=== PATIENT | female | born 1965 | race Caucasian/White ===

== ENCOUNTER 2018-03-26 20:22 | Emergency (ER) | payer OTHER ==
[2018-03-26 20:35] VITALS: BP 125/85; PULSE 76; TEMP 98.8; BMI 28.3
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
[2018-03-26] MEDS ORDERED: SODIUM CHLORIDE 1,000 ML IV STA (21:15)
[2018-03-26 21:42] LABS: BASO % 0.7 % (0-2.0); EOS % 2.5 % (0-4.5); HEMATOCRIT 37.3 % (32.4-45.2); HEMOGLOBIN 13.2 GM/dl (10.7-15.3); LYMPH % 38.6 % (8-40); MCH 32.7 pg (25.7-33.7); MCHC 35.4 g/dl (32.0-36.0); MEAN CELL VOLUME 92.3 fl (80-96); MEAN PLT VOLUME 8.7 fl (7.5-11.1); MONO % 9.4 % (3.8-10.2); NEUT % 48.8 % (42.8-82.8); PLATELET COUNT 278 K/MM3 (134-434); RBC 4.03 M/mm3 (3.60-5.2); RDW 13.3 % (11.6-15.6); WHITE BLOOD COUNT 5.5 K/mm3 (4.0-10.8)
[2018-03-26 21:50] LABS: ALBUMIN 4.1 g/dl (3.5-5.0); ALK PHOS 52 U/L (32-92); ANION GAP 7 (8-16); BLOOD UREA NITROGEN 10 mg/dl (7-18); CALCIUM 8.8 mg/dl (8.4-10.2); CHLORIDE 106 mmol/L (98-107); CO2 24 mmol/L (22-28); GLUCOSE,RANDOM 89 mg/dl (74-106); POTASSIUM 3.6 mmol/L (3.5-5.1); SGOT/AST 19 U/L (10-42); SGPT/ALT 22 U/L (10-40); SODIUM 137 mmol/L (136-145); TOT PROT 6.8 g/dl (6.4-8.3)
[2018-03-26 21:57] LABS: CREATININE 0.8 mg/dl (0.6-1.3)
[2018-03-26 22:03] LABS: BILIRUBIN,TOTAL < 0.5 mg/dl (0.2-1.0)
[2018-03-26] MEDS ORDERED: MECLIZINE HCL 12.5 MG TABLET ONE (22:16)
--- NOTE | 2018-03-27 09:46 | EKG ---
Test Reason : Blood Pressure : / mmHG Vent. Rate : 056 BPM Atrial Rate : 056 BPM P-R Int : 162 ms QRS Dur : 076 ms QT Int : 436 ms P-R-T Axes : 041 -01 000 degrees QTc Int : 420 ms SINUS BRADYCARDIA OTHERWISE NORMAL ECG NO PREVIOUS ECGS AVAILABLE Confirmed by YANDY PRAKASH MD ([id number]) on 03/27/2018 9:46:21 AM Referred By: DAVE BULL Confirmed By:YANDY PRAKASH MD
== END 2018-03-26 22:27 | disposition home or self-care (01) ==
LOC: FER 20:22
PROC: 3E0337Z Introduction of Electrolytic and Water Balance Substance into Peripheral Vein, Percutaneous Approach (ICD-10-PCS; principal; 2018-03-26)
DX: H81.20 Vestibular neuronitis, unspecified ear (principal); Z88.2 Allergy status to sulfonamides
CPT/HCPCS: 36415; 80053; 85025; 93005; 99282-25; J7030

== ENCOUNTER 2018-05-21 23:50 | Observation (INO) | payer OTHER ==
[2018-05-22] VITALS: BMI 28.3
--- NOTE | 2018-05-22 00:16 | PDOC ---
History of Present Illness - General Chief Complaint: Pain, Acute Stated Complaint: ABDOMINAL PAIN Time Seen by Provider: 05/22/18 00:09 History Source: Patient Exam Limitations: No Limitations - History of Present Illness Initial Comments: 05/22/18 00:18 This is a 52-year-old female who comes in complaining of abdominal pain 2 days. Patient said pain began last night and was associated with some chills. Patient did not take her temperature. Patient said she has had nausea but no vomiting. Patient denies any diarrhea. Patient said today she has had pain throughout the day with some anorexia and nausea. Patient denies history of similar pain in the past. PAST MEDICAL HISTORY: no significant history PAST SURGICAL HISTORY: no significant history FAMILY HISTORY: no pertinant history SOCIAL HISTORY: Pt lives with family and is employed. MEDICATIONS: reviewed ALLERGIES: As per nursing notes Review of Systems General: No fevers or chills, no weakness, no weight loss HEENT: No change in vision. No sore throat,. No ear pain CardioVascular: No chest pain or shortness of breath Respiratory:No cough, or wheezing. Gastrointestinal: + nausea, vomitting, diarrhea or constipation, No rectal bleeding, + abdominal pain Genitourinary: No dysuria, hematuria, or frequency Musculoskeletal: No joint or muscle pain or swelling Neurologic: No headache, vertigo, dizziness or loss of consciousness Psychiatric: nor depression Skin: No rashes or easy bruising Endocrine: no increased thirst or abnormal weight change Allergic: no skin or latex allergy All other systems reviewed and normal Exam: General: Well-nourished well-developed individual, no acute distress HEENT: Throat: Normal, tonsils normal, no erythema or exudate Neck: Supple, no meningeal signs, no lymphadenopathy Eyes::Pupils equal reactive and round, extraocular motion intact Chest: Nontender to palpation Cardiac: S1-S2 normal, regular rate and rhythm, no murmurs rubs or gallops Respiratory: Lungs clear to auscultation bilateral Abdomen: Soft, nondistended, normal bowel sounds, tender to palpation to the right of the umbilicus. There is no guarding or rebound. Extremities: Warm, dry, no cyanosis, clubbing, or edema Skin: No rashes Neuro: Alert and oriented x3, CN II - XII intact, nonfocal exam with normal strength, normal sensation, normal reflexes, normal gait, Psych: Normal mood and affect Medical decision making: This is a 52-year-old female who comes in complaining of 2 days now of some anorexia nausea and abdominal pain with probable fever. Patient was tender on palpation of the area adjacent to the umbilicus. It is uncertain as to whether or not this is gallbladder etiology or appendicitis. Will of obtain a workup of CBC, comp, lipase, UA, Scan abdomen and pelvis CT scan abdomen shows acute appendicitis. 05/22/18 03:30 Assessment and plan: This is a 52-year-old female who comes in complaining of abdominal pain. Patient had a workup which included a CT scan of the abdomen which revealed patient has an acute appendicitis. Patient will be admitted, transferred to [facility] and will go to the OR later today. Patient given Zosyn. Past History - Past Medical History Allergies/Adverse Reactions: Allergies Allergy/AdvReac Type Severity Reaction Status Date / Time Sulfa (Sulfonamide Allergy Verified 03/26/18 20:23 Antibiotics) Home Medications: Ambulatory Orders Lorazepam [Ativan] 0.5 mg PO PRN PRN 03/26/18 Meclizine HCl [Antivert -] 12.5 mg PO TID PRN #12 tablet 03/26/18 COPD: No - Suicide/Smoking/Psychosocial Hx Smoking History: Never smoked *Physical Exam - Vital Signs Last Vital Signs Temp Pulse Resp BP Pulse Ox 99.1 F 87 16 110/70 100 05/21/18 23:51 05/21/18 23:51 05/21/18 23:51 05/21/18 23:51 05/21/18 23:51 ED Treatment Course - LABORATORY CBC & Chemistry Diagram: 05/22/18 00:35 05/22/18 00:35 *DC/Admit/Observation/Transfer Diagnosis at time of Disposition: Acute appendicitis Qualifiers: Acute appendicitis type: unspecified acute appendicitis type Qualified Code(s) : K35.80 - Unspecified acute appendicitis - Discharge Dispostion Condition at time of disposition: Stable Decision to Admit order: Yes - Referrals Referrals: Jt Obando [Primary Care Provider] - - Patient Instructions - Post Discharge Activity
[2018-05-22] MEDS ORDERED: SODIUM CHLORIDE 1,000 ML IV SCH (00:30)
[2018-05-22 01:26] LABS: BASO % 0.2 % (0-2.0); EOS % 2.7 % (0-4.5); HEMATOCRIT 36.3 % (32.4-45.2); HEMOGLOBIN 12.3 GM/dL (10.7-15.3); LYMPH % 33.8 % (8-40); MCH 31.9 pg (25.7-33.7); MCHC 33.9 g/dl (32.0-36.0); MEAN PLT VOLUME 9.4 fl (7.5-11.1); MONO % 12.8 % (3.8-10.2); NEUT % 50.5 % (42.8-82.8); PLATELET COUNT 236 K/MM3 (134-434); RBC 3.86 M/mm3 (3.60-5.2); RDW 13.7 % (11.6-15.6); WHITE BLOOD COUNT 4.5 K/mm3 (4.0-10.0)
[2018-05-22 02:00] LABS: ALBUMIN 3.5 g/dl (3.4-5.0); ANION GAP 8 (8-16); BILIRUBIN,TOTAL 0.3 mg/dL (0.2-1.0); BLOOD UREA NITROGEN 11 mg/dL (7-18); CALCIUM 8.5 mg/dL (8.5-10.1); CHLORIDE 108 mmol/L (98-107); CO2 27 mmol/L (21-32); CREATININE 0.8 mg/dL (0.55-1.02); GLUCOSE,RANDOM 105 mg/dL (74-106); LIPASE 152 U/L (73-393); POTASSIUM 3.7 mmol/L (3.5-5.1); SGOT/AST 19 U/L (15-37); SGPT/ALT 31 U/L (12-78); SODIUM 143 mmol/L (136-145); TOT PROT 6.8 g/dl (6.4-8.2)
[2018-05-22 02:01] LABS: ALK PHOS 58 U/L (45-117)
[2018-05-22 02:04] LABS: URINE APPEARANCE SLCLOUDY; URINE BILIRUBIN NEGATIVE (<2.0 mg/dL); URINE COLOR YELLOW; URINE GLUCOSE (UA) NEGATIVE (NEGATIVE); URINE KETONE NEGATIVE (NEGATIVE); URINE NITRITE NEGATIVE (NEGATIVE); URINE PROTEIN NEGATIVE (NEGATIVE); URINE UROBILINOGEN NEGATIVE mg/dL (0.2-1.0)
[2018-05-22 02:06] LABS: URINE LEUK ESTERASE 1+ (NEGATIVE)
[2018-05-22 02:07] LABS: CALCIUM OXALATE CRYSTALS MODERATE /hpf (NONE SEEN); EPI CELLS RARE /HPF (FEW); GRANULAR CASTS 3 /lpf; URINE BACTERIA RARE /hpf (NONE SEEN); URINE MUCUS FEW
[2018-05-22] MEDS ORDERED: PIPERACILLIN/TAZOB 4.5 GM 4.5 GM in DEXTROSE 5%-WATER 100 ML IVPB ONE (03:32)
[2018-05-22] MEDS ORDERED: PIPERACILLIN/TAZOBACTAM 4.5 GM VIAL IVPB ONE (03:33)
[2018-05-22] MEDS ORDERED: MECLIZINE HCL 12.5 MG TABLET PO PRN (04:08)
--- NOTE | 2018-05-22 08:21 | HP ---
CHIEF COMPLAINT: abdominal pain PCP: none has not been evaluated by a PCP since she moved from [facility] 2 years ago HISTORY OF PRESENT ILLNESS: Patient is a 52 y/o male with a past medical history of anxiety, pericarditis and undifferentiated autoimmune disease. Patient reports generalized abdominal pain since 05/20/18, She reports the pain became more localized to the right lower quadrant of the abdomen with chills and nausea within the past 24 hours. As a result, she sought evaluation in the emergency department. ER course was notable for: (1)ct of abd/pelvis: finding suspicious of early appendicitis (2)wbc 4.5 (3) chest xray no infiltrate no effusion noted Recent Travel: none PAST MEDICAL HISTORY: see hpi PAST SURGICAL HISTORY: x 1, left orbital floor fracture repair Social History: resides at home with and son Smoking:none Alcohol:social Drugs: none Family History: mom- lung/breast ca father-ME alive and well Allergies Sulfa (Sulfonamide Antibiotics) Allergy (Verified 03/26/18 20:23) HOME MEDICATIONS: Home Medications Medication Instructions Recorded Lorazepam [Ativan] 0.5 mg PO PRN PRN 03/26/18 Meclizine HCl [Antivert -] 12.5 mg PO TID PRN #12 tablet 03/26/18 REVIEW OF SYSTEMS CONSTITUTIONAL: Absent: fever, chills, diaphoresis, generalized weakness, malaise, loss of appetite, weight change HEENT: Absent: rhinorrhea, nasal congestion, throat pain, throat swelling, difficulty swallowing, mouth swelling, ear pain, eye pain, visual changes CARDIOVASCULAR: Absent: chest pain, syncope, palpitations, irregular heart rate, lightheadedness , peripheral edema RESPIRATORY: Absent: cough, shortness of breath, dyspnea with exertion, orthopnea, wheezing, stridor, hemoptysis GASTROINTESTINAL: present: abdominal pain, nausea Absent: abdominal distension, vomiting, diarrhea, constipation, melena, hematochezia GENITOURINARY: Absent: dysuria, frequency, urgency, hesitancy, hematuria, flank pain, genital pain MUSCULOSKELETAL: Absent: myalgia, arthralgia, joint swelling, back pain, neck pain SKIN: Absent: rash, itching, pallor HEMATOLOGIC/IMMUNOLOGIC: Absent: easy bleeding, easy bruising, lymphadenopathy, frequent infections ENDOCRINE: Absent: unexplained weight gain, unexplained weight loss, heat intolerance, cold intolerance NEUROLOGIC: Absent: headache, focal weakness or paresthesias, dizziness, unsteady gait, seizure, mental status changes, bladder or bowel incontinence PSYCHIATRIC: Absent: anxiety, depression, suicidal or homicidal ideation, hallucinations. PHYSICAL EXAMINATION Vital Signs - 24 hr 05/21/18 05/22/18 05/22/18 23:51 02:30 03:54 Temperature 99.1 F 98.4 F 98.4 F Pulse Rate 87 Respiratory 16 16 Rate Blood Pressure 110/70 O2 Sat by Pulse 100 100 Oximetry (%) 05/22/18 06:21 Temperature 98.6 F Pulse Rate 55 L Respiratory 18 Rate Blood Pressure 100/62 O2 Sat by Pulse 94 L Oximetry (%) GENERAL: Awake, alert, and fully oriented, in no acute distress. HEAD: Normal with no signs of trauma. EYES: Pupils equal, round and reactive to light, extraocular movements intact, sclera anicteric, conjunctiva clear. No lid lag. EARS, NOSE, THROAT: Ears normal, nares patent, oropharynx clear without exudates. Moist mucous membranes. NECK: Normal range of motion, supple without lymphadenopathy, JVD, or masses. LUNGS: Breath sounds equal, clear to auscultation bilaterally. No wheezes, and no crackles. No accessory muscle use. HEART: Regular rate and rhythm, normal S1 and S2 without murmur, rub or gallop. ABDOMEN: Soft, echymosis (patient underwent accupunture 05/21/18), + mcburney's point tenderness, not distended, normoactive bowel sounds, no guarding, no masses. No hepatomegaly or splenomegaly. MUSCULOSKELETAL: Normal range of motion at all joints. No bony deformities or tenderness. No CVA tenderness. UPPER EXTREMITIES: 2+ pulses, warm, well-perfused. No cyanosis. No clubbing. No peripheral edema. LOWER EXTREMITIES: 2+ pulses, warm, well-perfused. No calf tenderness. No peripheral edema. NEUROLOGICAL: Cranial nerves II-XII intact. Normal speech. Normal gait. PSYCHIATRIC: Cooperative. Good eye contact. Appropriate mood and affect. SKIN: Warm, dry, normal turgor, no rashes or lesions noted, normal capillary refill. Laboratory Results - last 24 hr 05/22/18 05/22/18 05/22/18 00:35 00:35 00:35 WBC 4.5 RBC 3.86 Hgb 12.3 Hct 36.3 MCV 94.0 MCH 31.9 MCHC 33.9 RDW 13.7 Plt Count 236 MPV 9.4 Absolute Neuts (auto) 2.3 Neutrophils % 50.5 Lymphocytes % 33.8 Monocytes % 12.8 H Eosinophils % 2.7 Basophils % 0.2 Nucleated RBC % 0 Sodium 143 Potassium 3.7 Chloride 108 H Carbon Dioxide 27 Anion Gap 8 BUN 11 Creatinine 0.8 Creat Clearance w eGFR > 60 Random Glucose 105 Calcium 8.5 Total Bilirubin 0.3 AST 19 ALT 31 Alkaline Phosphatase 58 Total Protein 6.8 Albumin 3.5 Lipase 152 Urine Color Yellow Urine Appearance Slcloudy Urine pH 5.0 Ur Specific [place] 1.026 Urine Protein Negative Urine Glucose (UA) Negative Urine Ketones Negative Urine Blood Negative Urine Nitrite Negative Urine Bilirubin Negative Urine Urobilinogen Negative Ur Leukocyte Esterase 1+ H Urine WBC (Auto) 22 Urine RBC (Auto) 7 Ur Epithelial Cells Rare Calcium Oxalate Crystal Moderate Urine Bacteria Rare Granular Casts 3 Urine Mucus Few ASSESSMENT/PLAN: 1) acute appendicitis - ct scan of abd reviewed, continue NPO-->ivf, discussed with surgeon, Dr Salazar will evaluate patient today - continue zosyn, second dose at 10am, appreciate ID input for abx approval - no leukocytosis, patient is afebrile, pending AM LABS trend cbc and fever curve - stat type and screen and INR 2) psych anxiety - continue home dose ativan 0.5mg TID prn, medication verifed with [place] [facility] Reference #: [id number] f/e/n - npo-->IVF - replete electrolyted prn ppx - scd/simón - pepcid dispo: pt requires obsv admission Visit type - Emergency Visit Emergency Visit: Yes ED Registration Date: 05/22/18 Care time: The patient presented to the Emergency Department on the above date and was hospitalized for further evaluation of their emergent condition. - New Patient This patient is new to me today: Yes Date on this admission: 05/22/18 - Critical Care Critical Care patient: No Hospitalist Screening - Colonoscopy Questionnaire Colonoscopy Questionnaire: Colonoscopy Questionnaire - Patient: 50 - 75 years old and never had a screening colonoscopy: Yes History of colon or rectal polyps, or CA: No History of IBD, Crohn's disease or UC: No History of abdominal radiation therapy as a child: No - Relative: 1 with colon or rectal CA, or polyps at age 60 or younger: No Colon or rectal CA diagnosed at age 45 or younger: No Multiple relatives with colon or rectal CA: No - Outcome: Screening Result: Positive Screen
[2018-05-22] MEDS ORDERED: SODIUM CHLORIDE 0.9%/KCL 20 MEQ/1,000 ML INFUS.BAG IV SCH (09:15)
--- NOTE | 2018-05-22 09:28 | EKG ---
Test Reason : Blood Pressure : / mmHG Vent. Rate : 052 BPM Atrial Rate : 052 BPM P-R Int : 160 ms QRS Dur : 064 ms QT Int : 448 ms P-R-T Axes : 018 -05 -06 degrees QTc Int : 416 ms SINUS BRADYCARDIA POOR R WAVE PROGRESSION ABNORMAL ECG WHEN COMPARED WITH ECG OF 26-MAR-2018 21:21, NO SIGNIFICANT CHANGE WAS FOUND Confirmed by YANDY PRAKASH MD ([id number]) on 05/22/2018 9:28:05 AM Referred By: DR MCNAMARA Confirmed By:YANDY PRAKASH MD
[2018-05-22] MEDS ORDERED: LORazepam 0.5 MG TABLET PO PRN ×2 (09:30→10:08)
[2018-05-22] MEDS: FAMOTIDINE 20 MG/50 ML IVPB 20 MG/50 ML MG IVPB SCH ×2 (09:47→21:24)
[2018-05-22] MEDS ORDERED: PIPERACILLIN/TAZOB 3.375 GM 3.375 GM/50 ML BAG IVPB ONE (10:00)
[2018-05-22] MEDS ORDERED: LIDOCAINE HCL 1%, 10 MG/ML (20ML VIAL) ONE (10:16)
[2018-05-22] MEDS ORDERED: BUPIVACAINE HCL/PF 0.5% (5MG/ML) 10 ML VIAL ONE (10:16)
--- NOTE | 2018-05-22 11:14 | CONSULT ---
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 She had decreased appetite Fri and , felt very uncomfortable, never vomited, but did have chills yesterday. In ER, she has normal wbc, CT showed acute appendicitis, and u/a is consistent with translocation of bacteria. Her pain is much better since medication, IVF and antibiotics were started. Currently, still with some discomfort in RLQ. [place] constipated Wed morning, took shake with flax and spirulina and had a BM, then also took magnesium and had some more , but not as much as expected. Last po was yesterday. She also took 2 Excedrin yesterday for the pain. - History Source History Provided By: Patient Limitations to Obtaining History: No Limitations - Past Medical History Gastrointestinal: Yes: GERD ...: No Psych: No: Anxiety (pt denies - uses ativan for sleep), Depression Rheumatology: Yes: Other (undifferentiated autoimmune disease) - Past Surgical History Past Surgical History: Yes: Additional Surgical History: L orbital fx repair and sinus surgery after an accident - Alcohol/Substance Use Hx Alcohol Use: Yes (social ) History of Substance Use: reports: None - Smoking History Smoking history: Former smoker Have you smoked in the past 12 months: No If you are a former smoker, when did you quit?: 4 pk-yr hx in teens - Social History Usual Living Arrangement: With Spouse ADL: Independent Home Medications - Allergies Allergies/Adverse Reactions: Allergies Allergy/AdvReac Type Severity Reaction Status Date / Time Sulfa (Sulfonamide Allergy Verified 03/26/18 20:23 Antibiotics) - Home Medications Home Medications: Ambulatory Orders Lorazepam [Ativan] 0.5 mg PO PRN PRN 03/26/18 Home Medications (free text): pt uses 1-2 nightly prn for sleep Family Disease History - Family Disease History Family History: Unremarkable (noncontributory) Review of Systems - Review of Systems Constitutional: reports: Chills, Loss of Appetite. denies: Fever Eyes: reports: Other (wears glasses). denies: Recent Change in Vision HENT: denies: Difficult Swallowing, Nasal Congestion, Throat Pain Neck: denies: Swollen Glands, Tenderness Cardiovascular: reports: Chest Pain (more acid and gas-like with hpi). denies: Palpitations Respiratory: reports: SOB on Exertion (with exercise). denies: Cough, SOB Gastrointestinal: reports: Abdominal Pain (with hpi), Constipation (last couple days), Nausea. denies: Diarrhea, Vomiting Genitourinary: denies: Burning, Dysuria Musculoskeletal: denies: Back Pain, Joint Pain, Muscle Pain Integumentary: denies: Change in Color, Rash Neurological: reports: Headache (last couple days). denies: Dizziness Psychiatric: denies: Anxiety, Depression Physical Exam Vital Signs: Vital Signs Temperature 97.8 F 05/22/18 10:09 Pulse Rate 18 L 05/22/18 10:09 Respiratory Rate 18 05/22/18 10:09 Blood Pressure 105/66 05/22/18 10:09 O2 Sat by Pulse Oximetry (%) 97 05/22/18 10:09 Constitutional: Yes: No Distress, Calm, Obese Eyes: Yes: Conjunctiva Clear, EOM Intact HENT: Yes: Atraumatic, Normocephalic Neck: Yes: Supple, Trachea Midline Cardiovascular: Yes: Regular Rate and Rhythm Respiratory: Yes: Regular, CTA Bilaterally Gastrointestinal: Yes: Normal Bowel Sounds, Soft, Abdomen, Obese, Tenderness ( RLQ focally, no guarding or rebound), Other (healed Pfannenstiel scar). No: Distention ...Rectal Exam: Yes: Deferred Renal/: No: CVA Tenderness - Left, CVA Tenderness - Right Musculoskeletal: No: Joint Stiffness, Joint Swelling Extremities: No: Cool, Cyanosis Edema: No Peripheral Pulses WNL: Yes Integumentary: No: Jaundice, Rash Neurological: Yes: Alert, Oriented Psychiatric: Yes: Alert, Oriented Labs: CBC, BMP 05/22/18 00:35 05/22/18 00:35 CMP Sodium 143 mmol/L (136-145) 05/22/18 00:35 Potassium 3.7 mmol/L (3.5-5.1) 05/22/18 00:35 Chloride 108 mmol/L (98-107) H 05/22/18 00:35 Carbon Dioxide 27 mmol/L (21-32) 05/22/18 00:35 Anion Gap 8 (8-16) 05/22/18 00:35 BUN 11 mg/dL (7-18) 05/22/18 00:35 Creatinine 0.8 mg/dL (0.55-1.02) 05/22/18 00:35 Creat Clearance w eGFR > 60 (>60) 05/22/18 00:35 Random Glucose 105 mg/dL (74-106) 05/22/18 00:35 Calcium 8.5 mg/dL (8.5-10.1) 05/22/18 00:35 Total Bilirubin 0.3 mg/dL (0.2-1.0) 05/22/18 00:35 AST 19 U/L (15-37) 05/22/18 00:35 ALT 31 U/L (12-78) 05/22/18 00:35 Alkaline Phosphatase 58 U/L (45-117) 05/22/18 00:35 Total Protein 6.8 g/dl (6.4-8.2) 05/22/18 00:35 Albumin 3.5 g/dl (3.4-5.0) 05/22/18 00:35 Lipase 152 U/L (73-393) 05/22/18 00:35 Urine Test Results Urine Color Yellow 05/22/18 00:35 Urine Appearance Slcloudy 05/22/18 00:35 Urine pH 5.0 (5.0-8.0) 05/22/18 00:35 Ur Specific [place] 1.026 (1.001-1.035) 05/22/18 00:35 Urine Protein Negative (NEGATIVE) 05/22/18 00:35 Urine Glucose (UA) Negative (NEGATIVE) 05/22/18 00:35 Urine Ketones Negative (NEGATIVE) 05/22/18 00:35 Urine Blood Negative (NEGATIVE) 05/22/18 00:35 Urine Nitrite Negative (NEGATIVE) 05/22/18 00:35 Urine Bilirubin Negative (<2.0 mg/dL) 05/22/18 00:35 Ur Leukocyte Esterase 1+ (NEGATIVE) H 05/22/18 00:35 Ur Epithelial Cells Rare /HPF (FEW) 07/06/18 00:35 Urine Bacteria Rare /hpf (NONE SEEN) 05/22/18 00:35 Urine Mucus Few 05/22/18 00:35 PT pending Imaging - Results Cat Scan: Report Reviewed, Image Reviewed (images personally reviewed - enlarged appendix with mild periappendiceal inflammation, acute appendicitis, no abscess or perforation) Problem List - Problems (1) Appendicitis Assessment/Plan: admitted to medicine NPO/IVF antibiotics pain meds prn Discussed with patient risks, benefits and alternatives of laparoscopic possible open appendectomy, including but not limited to bleeding, infection, injury to adjacent structures, intestinal leak or injury, intraabdominal abscess , need for further procedures; alternatives include antibiotics, delayed or no surgery - risks of this include failure of nonoperative therapy, perforation, sepsis, recurrence. Patient desires to proceed with operation - will take to OR for above. Informed consent signed for same. anticipate resumption of po postop GI/DVT prophylaxis will use nonnarcotics first line postop will be able to d/c when ambulating, voiding, tolerating some po, pain controlled with oral meds discussed with Talita Sherwood Code(s): K37 - UNSPECIFIED APPENDICITIS Qualifiers: Appendicitis type: acute appendicitis Acute appendicitis type: unspecified acute appendicitis type Qualified Code(s): K35.80 - Unspecified acute appendicitis (2) Nausea alone Code(s): R11.0 - NAUSEA (3) RLQ abdominal pain Code(s): R10.31 - RIGHT LOWER QUADRANT PAIN
[2018-05-22 11:22] LABS: INR 0.98 (0.82-1.09)
[2018-05-22] MEDS ORDERED: ROCURONIUM BROMIDE 50 MG/5 ML VIAL ONE (11:36)
[2018-05-22] MEDS ORDERED: MIDAZOLAM HCL 2 MG/2 ML SINGLE DOSE VIAL ONE (11:36)
[2018-05-22] MEDS ORDERED: PROPOFOL 20 ML ONE ×2 (11:36)
[2018-05-22] MEDS ORDERED: fentaNYL CITRATE 250 MCG/5 ML VIAL ONE (11:36)
[2018-05-22] MEDS ORDERED: ONDANSETRON 4 MG/2 ML VIAL ONE (12:01)
[2018-05-22] MEDS ORDERED: DEXAMETHASONE SOD PHOSPHATE 4 MG/1 ML VIAL ONE (12:01)
[2018-05-22] MEDS ORDERED: KETOROLAC TROMETHAMINE 30 MG/1 ML VIAL ONE (12:01)
[2018-05-22] MEDS ORDERED: LIDOCAINE HCL 2% JELLY (5 ML/TUBE) ONE (12:01)
[2018-05-22] MEDS ORDERED: ePHEDrine SULFATE 50 MG/1 ML AMPULE ONE (12:05)
[2018-05-22] MEDS ORDERED: BUPIVACAINE HCL 0.25% 125 MG/50 ML VIAL INF ONE (12:42)
[2018-05-22] MEDS ORDERED: NEOSTIGMINE METHYLSULFATE 0.5 MG/ML - 10 ML MDV ONE (12:54)
[2018-05-22] MEDS ORDERED: GLYCOPYRROLATE 0.2 MG/1 ML VIAL ONE (12:58)
[2018-05-22] MEDS ORDERED: PROMETHAZINE HCL 25 MG/1 ML VIAL IVPUSH PRN (13:16)
[2018-05-22] MEDS ORDERED: oxyCODONE HCL 5 MG TABLET PO PRN ×2 (13:16)
--- NOTE | 2018-05-22 13:16 | OP ---
Operative Note - Note: Operative Date: 05/22/18 Pre-Operative Diagnosis: acute appendicitis Operation: laparoscopic appendectomy Findings: inflamed appendix Post-Operative Diagnosis: Same as Pre-op Surgeon: John Salazar Anesthesiologist/COCOA ROASTER: Andres Friedman Anesthesia: General, Local (10ml .25% marcaine) Specimens Removed: appendix to pathology Estimated Blood Loss (mls): 5 Drains & Tubes with Location: Olivares removed at end of case Drains, Volume Out (mls): 75 (UOP) Fluid Volume Replaced (mls): 650 (crystalloid) Operative Report Dictated: Yes
--- NOTE | 2018-05-22 13:29 | CON.ID ---
Consult Consult Specialty:: infectious diseases Reason for Consultation:: Appendicitis,abd pain - History of Present Illness Chief Complaint: abd pain History of Present Illness: 52yo F with autoimmune disorder admitted to the hospital because of abd pain and discomfort which was associated with nausea initially the pain was diffuse then it got localized to the rlq patient was worked up and found to have acute appendicitis on imaging studies and patient was taken to the operating room and was operated currently post op and stable case d/w the surgical team - History Source History Provided By: Patient, Medical Record Limitations to Obtaining History: Clinical Condition - Past Medical History Gastrointestinal: Yes: GERD ...: No Psych: No: Anxiety (pt denies - uses ativan for sleep), Depression Rheumatology: Yes: Other (undifferentiated autoimmune disease) - Past Surgical History Past Surgical History: Yes: Additional Surgical History: L orbital fx repair and sinus surgery after an accident - Alcohol/Substance Use Hx Alcohol Use: Yes (social ) History of Substance Use: reports: None - Smoking History Smoking history: Former smoker Have you smoked in the past 12 months: No If you are a former smoker, when did you quit?: 4 pk-yr hx in teens - Social History Usual Living Arrangement: With Spouse ADL: Independent Home Medications - Allergies Allergies/Adverse Reactions: Allergies Allergy/AdvReac Type Severity Reaction Status Date / Time Sulfa (Sulfonamide Allergy Verified 03/26/18 20:23 Antibiotics) - Home Medications Home Medications: Ambulatory Orders Lorazepam [Ativan] 0.5 mg PO PRN PRN 03/26/18 Review of Systems - Review of Systems Constitutional: reports: No Symptoms Eyes: reports: No Symptoms HENT: reports: No Symptoms Neck: reports: No Symptoms Cardiovascular: reports: No Symptoms Respiratory: reports: No Symptoms Gastrointestinal: reports: Abdominal Pain, Nausea Genitourinary: reports: No Symptoms Musculoskeletal: reports: No Symptoms Integumentary: reports: No Symptoms Neurological: reports: No Symptoms Endocrine: reports: No Symptoms Hematology/Lymphatic: reports: No Symptoms Psychiatric: reports: No Symptoms Physical Exam Vital Signs: Vital Signs Temperature 97.8 F 05/22/18 10:09 Pulse Rate 18 L 05/22/18 10:09 Respiratory Rate 18 05/22/18 10:09 Blood Pressure 105/66 05/22/18 10:09 O2 Sat by Pulse Oximetry (%) 97 05/22/18 10:09 Constitutional: Yes: Calm, Mild Distress Eyes: Yes: Conjunctiva Clear HENT: Yes: Atraumatic, Normocephalic Neck: Yes: Supple, Trachea Midline Cardiovascular: Yes: Regular Rate and Rhythm Respiratory: Yes: Regular, CTA Bilaterally Gastrointestinal: Yes: Soft, Hypoactive Bowel Sounds Musculoskeletal: Yes: WNL Extremities: Yes: WNL Wound/Incision: Yes: Clean/Dry Neurological: Yes: Alert, Oriented Psychiatric: Yes: Alert, Oriented Labs: CBC, BMP 05/22/18 00:35 05/22/18 00:35 Imaging - Results Cat Scan: Report Reviewed, Image Reviewed Assessment/Plan Problem List - Problems (1) Appendicitis Code(s): K37 - UNSPECIFIED APPENDICITIS Qualifiers: Appendicitis type: acute appendicitis Acute appendicitis type: unspecified acute appendicitis type Qualified Code(s): K35.80 - Unspecified acute appendicitis (2) Nausea alone Code(s): R11.0 - NAUSEA (3) RLQ abdominal pain Code(s): R10.31 - RIGHT LOWER QUADRANT PAIN plan stable post op continue abx if patient remains stable and tolerates orally then after the night dose can d/c abx
[2018-05-22] MEDS: ACETAMINOPHEN 325 MG TABLET (FP) PO SCH ×2 (16:55→20:57)
[2018-05-22] MEDS ORDERED: PIPERACILLIN/TAZOB 3.375 GM 3.375 GM/50 ML BAG IVPB SCH (18:00)
[2018-05-22] MEDS: IBUPROFEN 600 MG TABLET (FP) PO SCH ×2 (18:22→23:29)
[2018-05-22] MEDS: PIPERACILLIN/TAZOB 3.375 GM 3.375 GM/50 ML BAG IVPB SCH (18:30)
[2018-05-22] MEDS: oxyCODONE HCL 5 MG TABLET PO PRN (19:44)
[2018-05-23] MEDS: oxyCODONE HCL 5 MG TABLET PO PRN (00:09)
[2018-05-23] MEDS: ONDANSETRON 4 MG/2 ML VIAL IVPUSH PRN ×2 (00:10→11:16)
[2018-05-23] MEDS: PIPERACILLIN/TAZOB 3.375 GM 3.375 GM/50 ML BAG IVPB SCH (01:39)
[2018-05-23] MEDS: ACETAMINOPHEN 325 MG TABLET (FP) PO SCH ×4 (03:06→10:20)
[2018-05-23] MEDS: IBUPROFEN 600 MG TABLET (FP) PO SCH ×2 (06:33→11:32)
--- NOTE | 2018-05-23 07:29 | PN ---
Progress Note (short form) - Note Progress Note: c/o feeling generalized weakness and mucosa dryness. states it started in the middle of the night shortly after receiving pain medications. has taken percocet in the past with similiar symptoms but was taking it at home so is unaware what her BP was at the time. stopped taking the medication and had better effect with tylenol #3. states she ate well last night and has been passing flatus. has not been on any steroids in the past few years. denies Cp, SOB, fever, chills, blurred vision, WOODRUFF, palpitaitons, N/v/C/D Current Medications Generic Name Dose Route Start Last Admin Trade Name Freq PRN Reason Stop Dose Admin Acetaminophen 650 mg 05/22/18 15:00 05/23/18 06:38 Tylenol - PO 650 mg Q6H SCOTT Administration Fentanyl 50 mcg 05/22/18 13:16 05/22/18 13:58 Sublimaze Injection - IVPUSH 25 mcg [id number] PRN Administration PAIN-PACU ORDER X 4 DOSES ONLY Famotidine/Sodium Chloride 20 mg in 50 mls @ 100 mls/hr 05/22/18 10:00 21:24 Pepcid 20 Mg Premixed Ivpb - IVPB 100 mls/hr BID SCOTT Administration Piperacillin Sod/Tazobactam Sod 3.375 gm in 50 mls @ 100 mls/hr 05/22/18 18: 00 05/23/18 01:39 Zosyn 3.375gm Ivpb (Pre-Docked) IVPB 100 mls/hr Q8H-IV SCOTT Administration Protocol Ibuprofen 600 mg 05/22/18 18:00 05/23/18 06:33 Motrin - PO Not Given Q6H SCOTT Lorazepam 0.5 mg 05/22/18 10:08 Ativan - PO TID PRN ANXIETY Ondansetron HCl 4 mg 05/22/18 13:16 05/23/18 00:10 Zofran Injection IVPUSH 4 mg Q6H PRN Administration NAUSEA AND/OR VOMITING Oxycodone HCl 5 mg 05/22/18 13:23 05/23/18 00:09 Roxicodone - PO 5 mg Q6H PRN Administration Pain Level 7 - 10 BREAKTHROUGH Promethazine HCl 12.5 mg 05/22/18 13:16 Phenergan Injection - IVPUSH Q6H PRN NAUSEA-FOR RESCUE AFTER 15 MIN Last Vital Signs Temp Pulse Resp BP Pulse Ox 98.4 F 54 L 18 75/35 93 L 05/23/18 06:00 05/23/18 06:00 05/23/18 06:00 05/23/18 06:00 05/23/18 06:44 General NAD CV S1 S2 RRR no murmur Lungs CTA B/L no wheezing/rales/rhonchi Abdomen soft, slightly distended. 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 Course was complicated by development of severe hypotension the day after surgery 1. Hypotension- likely reaction to opiate. already received 500cc IVF since midnight. start 1L NS bolus, trendelberg. repeat BP 85/40 prior to bolus starting. check BP in 1H. complete bedrest at this time. follow repeat CBC to monitor for significant blood loss however less concerned that pt would be internally bleeding at this time. dc percocet 2. Acute appendicitis- s/p laprascopic appendectomy 05/22. no complications. tolerating diet. will d/c abx at this time. d/c percocet due to hypotension. encouraged to use alternating tylenol and motrin. will place tylenol #3 as had good effect in the past per pt. incentive spirometer 3. anxiety- controlled. cont home medications 4. undifferentiated auotimmune disease- cont f/u with rheum as outpatient 5. DVT ppx- will start hep sq 6. pt interested in going home. explained to patient will need to closely monitor BP at this time. verbalized understanding and agreement with plan Visit type - Emergency Visit Emergency Visit: Yes ED Registration Date: 05/22/18 Care time: The patient presented to the Emergency Department on the above date and was hospitalized for further evaluation of their emergent condition. - New Patient This patient is new to me today: Yes Date on this admission: 05/23/18 - Critical Care Critical Care patient: No - Discharge Referral Referred to [facility] Med P.C.: No
[2018-05-23] MEDS ORDERED: ACETAMINOPHEN WITH CODEINE 300MG/30MG TABLET PO PRN (07:47)
[2018-05-23] MEDS ORDERED: SODIUM CHLORIDE 1,000 ML IV STA ×2 (07:50→21:29)
[2018-05-23 08:36] LABS: HEMATOCRIT 30.8 % (32.4-45.2); HEMOGLOBIN 10.5 GM/dl (10.7-15.3); MCH 31.9 pg (25.7-33.7); MEAN CELL VOLUME 93.9 fl (80-96); MEAN PLT VOLUME 9.8 fl (7.5-11.1); PLATELET COUNT 213 K/MM3 (134-434); RBC 3.29 M/mm3 (3.60-5.2); RDW 13.4 % (11.6-15.6); WHITE BLOOD COUNT 7.4 K/mm3 (4.0-10.8)
[2018-05-23 09:35] LABS: ANION GAP 7 (8-16); BLOOD UREA NITROGEN 11 mg/dl (7-18); CALCIUM 8.1 mg/dl (8.4-10.2); CHLORIDE 107 mmol/L (98-107); CO2 22 mmol/L (22-28); GLUCOSE,RANDOM 108 mg/dl (74-106); POTASSIUM 4.3 mmol/L (3.5-5.1); SODIUM 136 mmol/L (136-145)
[2018-05-23] MEDS ORDERED: SODIUM CHLORIDE 0.9% 1000 ML INFUS.BAG IV SCH (10:00)
[2018-05-23] MEDS: FAMOTIDINE 20 MG/50 ML IVPB 20 MG/50 ML MG IVPB SCH ×2 (10:19→22:00)
[2018-05-23] MEDS ORDERED: ACETAMINOPHEN 325 MG TABLET (FP) PO PRN (11:34)
--- NOTE | 2018-05-23 11:58 | PN ---
Progress Note, Physician History of Present Illness: s/p lap appy yesterday for acute appendicitis overnight/am events noted - low BP improved after fluids and pt reports no dizziness/weakness this am, especially after being upright. Ambulated to bathroom and urinated light-colored urine without difficulty. Tolerated mostly liquids for dinner per her report with some fruit, and light breakfast this am. Drinking fluids, but not much yet. just brought some from home. She thought ibuprofen irritated her stomach last night, and didn't want it this morning, also wants to avoid narcotics if possible. Has not used any ativan here. Slept ok. Pain is minimal after tylenol this morning. No RLQ pain anymore. Had some nausea, but is feeling better now, took some promethazine anyway just now. Last BP just now was 98/60. Has been bradycardic but stable, HR was 48. On chart review, highest BP this visit and previous was 124 systolic. - Current Medication List Current Medications: Active Medications Acetaminophen (Tylenol -) 650 mg PO Q4H PRN PRN Reason: Pain Level 4 - 10 Heparin Sodium (Porcine) (Heparin -) 5,000 unit SQ TID [facility] Famotidine/Sodium Chloride (Pepcid 20 Mg Premixed Ivpb -) 20 mg in 50 mls @ 100 mls/hr IVPB BID [facility] Last Admin: 05/23/18 10:19 Dose: 100 mls/hr Ibuprofen (Motrin -) 600 mg PO Q6H [facility] Last Admin: 05/23/18 11:32 Dose: Not Given Lorazepam (Ativan -) 0.5 mg PO TID PRN PRN Reason: ANXIETY - Objective Vital Signs: Vital Signs Temperature 98.4 F 05/23/18 07:00 Pulse Rate 43 L 05/23/18 09:52 Respiratory Rate 18 05/23/18 08:31 Blood Pressure 85/52 05/23/18 09:52 O2 Sat by Pulse Oximetry (%) 98 05/23/18 08:31 Vital Signs Period Temp Pulse Resp BP Sys/Elkins Pulse Ox Last 24 Hr 97.6 F-98.4 F 43-75 14-19 75-124/39-72 93-99 Constitutional: Yes: Well Nourished, No Distress, Calm Eyes: Yes: Conjunctiva Clear, EOM Intact HENT: Yes: Atraumatic, Normocephalic Gastrointestinal: Yes: Soft, Abdomen, Obese, Tenderness (minimal incisional only , no lower quadrant tend). No: Tenderness, Epigastrium Extremities: No: Cool, Cyanosis Integumentary: No: Jaundice, Rash Wound/Incision: Yes: Steri Strips (under dressings), Dressing Dry and Intact (x3 ), Other (mild bruising at edges of incisional dressings, minimally tender, no strikethrough). No: Dressing Removed Neurological: Yes: Alert, Oriented. No: Unsteady Gait Labs: CBC, BMP 05/23/18 07:05 05/23/18 07:05 Problem List - Problems (1) Appendicitis Assessment/Plan: POD1 s/p laparoscopic appendectomy had low BP and weakness this am, likely from element of dehydration much improved with fluid bolus and now feeling well upright, ambulating pain minimal, wants to use only nonnarcotics prn tolerating diet, eating lightly encouraged to take in liquids, non-caffeinated fluids will ask RN to disconnect from IVF to ambulate after lunch if remains stable and feeling well this afternoon, may d/c home with tylenol prn for pain, may decide to alternate with ibuprofen (smaller dose) on not-empty stomach no narcotics, antibiotics d/c'd postop instructions in d/c plan - discussed with pt and at bedside incisions dressed - to removed dressings at home tomorrow, then may shower bruising anticipated to resolve over time Code(s): K37 - UNSPECIFIED APPENDICITIS Qualifiers: Appendicitis type: acute appendicitis Acute appendicitis type: unspecified acute appendicitis type Qualified Code(s): K35.80 - Unspecified acute appendicitis (2) Nausea alone Assessment/Plan: resolved Code(s): R11.0 - NAUSEA (3) RLQ abdominal pain Assessment/Plan: resolved Code(s): R10.31 - RIGHT LOWER QUADRANT PAIN
[2018-05-23 12:08] LABS: HEMATOCRIT 31.8 % (32.4-45.2); HEMOGLOBIN 10.8 GM/dl (10.7-15.3); MCH 31.9 pg (25.7-33.7); MCHC 33.9 g/dl (32.0-36.0); MEAN CELL VOLUME 93.9 fl (80-96); MEAN PLT VOLUME 8.2 fl (7.5-11.1); PLATELET COUNT 269 K/MM3 (134-434); RBC 3.39 M/mm3 (3.60-5.2); RDW 13.3 % (11.6-15.6); WHITE BLOOD COUNT 7.7 K/mm3 (4.0-10.8)
--- NOTE | 2018-05-23 14:56 | DS ---
Physical Exam: SUBJECTIVE: Patient seen and examined. asymptomatic. pain is controlled with tylenol. tolerating diet. ambulating halls without difficulty. carlaie CP, SOB,f ever, chills, WOODRUFF, N/V/C/D OBJECTIVE: Vital Signs Period Temp Pulse Resp BP Sys/Elkins Pulse Ox Last 24 Hr 97.5 F-986 F 43-74 16-19 75-98/39-60 93-100 PHYSICAL EXAM GENERAL: The patient is awake, alert, and fully oriented, in no acute distress. HEAD: Normal with no signs of trauma. EYES: PERRL, extraocular movements intact, sclera anicteric, conjunctiva clear. ENT: Ears normal, nares patent, oropharynx clear without exudates, moist mucous membranes. NECK: Trachea midline, full range of motion, supple. LUNGS: Breath sounds equal, clear to auscultation bilaterally, no wheezes, no crackles, no accessory muscle use. HEART: Regular rate and rhythm, S1, S2 without murmur, rub or gallop. ABDOMEN: Soft, surgical incisions with dressings c/d/i some incisional pain, nondistended, normoactive bowel sounds, no guarding, no rebound, no hepatosplenomegaly, no masses. EXTREMITIES: 2+ pulses, warm, well-perfused, no edema. NEUROLOGICAL: Cranial nerves II through XII grossly intact. Normal speech, gait not observed. PSYCH: Normal mood, normal affect. SKIN: Warm, dry, normal turgor, no rashes or lesions noted. LABS Laboratory Results - last 24 hr 05/23/18 05/23/18 05/23/18 07:05 07:05 12:00 WBC 7.4 7.7 RBC 3.29 L 3.39 L Hgb 10.5 L 10.8 Hct 30.8 L D 31.8 L MCV 93.9 93.9 MCH 31.9 31.9 MCHC 34.0 33.9 RDW 13.4 13.3 Plt Count 213 269 MPV 9.8 8.2 Sodium 136 Potassium 4.3 Chloride 107 Carbon Dioxide 22 Anion Gap 7 L BUN 11 Creatinine 1.0 Creat Clearance w eGFR 57.78 Random Glucose 108 H D Calcium 8.1 L HOSPITAL COURSE: Date of Admission:05/22/18 Date of Discharge: 05/23/18 admitting diagnosis Acute appendicitis Pre hospital course 52 y/o male with a past medical history of anxiety, pericarditis and undifferentiated autoimmune disease. Patient reports generalized abdominal pain since 05/20/18, She reports the pain became more localized to the right lower quadrant of the abdomen with chills and nausea within the past 24 hours. As a result, she sought evaluation in the emergency department. ER course was notable for: (1)ct of abd/pelvis: finding suspicious of early appendicitis (2)wbc 4.5 (3) chest xray no infiltrate no effusion noted SUbsequent hospital course Admitted to medicine. underwent laprascopic appendectomy. tolerated procedure well. course complicated by concern for hypotension which is liekly due to narcotic use and dehydration. improved with IVF. on chart review pt is always having low SBP 100's and always noted to have sinus bradycardia. clincially improved and was d/c home. Minutes to complete discharge: 40 Discharge Summary Reason For Visit: ABDOMINAL PAIN Current Active Problems Acute appendicitis (Acute) Appendicitis (Acute) Nausea alone (Acute) Obesity (Acute) RLQ abdominal pain (Acute) Condition: Improved - Instructions Diet, Activity, Other Instructions: Postoperative instructions: You had a laparoscopic appendectomy on 05/22/[address] John Salazar of [facility]. Activity: Resume your usual activities gradually, but no heavy exertion or lifting more than 10-15 pounds for 1 month. Remove dressings 48 hours after surgery; sticky tapes underneath will fall off by themselves. You may shower daily starting then, just pat the incision areas dry. No bath or swimming until skin incisions have healed. Eat lightly at first, but advance to your usual diet as tolerated. Pain: For pain, you may use and alternate Tylenol (acetaminophen) 1-2 tablets ( regular or extra strength) and/or ibuprofen 200mg (x1-3 pills) every 6 hours each as needed; this means that you can take one OR the other at 3-hour intervals. IF you are prescribed a Tylenol/narcotic combination for severe pain , use it instead of plain Tylenol as needed and switch back when your pain starts decreasing. Do not take more than 4000mg of acetaminophen in a day. Take medications as prescribed or indicated on the labeling. Follow-up: Call Dr. Salazar's office at [phone] to make your postop appointment (Friday ~2 weeks after surgery). Clinic is held in the [facility] on the first floor of [facility] at [address] in [place]. Call the office if you have: * increasing pain not responsive to pain medication * fever of 101F or higher * vomiting * unusual or increasing bleeding or drainage from wounds * increasing redness or swelling at wound sites * inability to urinate Also, see your primary medical doctor within 1-2 weeks. Referrals: John Salazar MD [Staff Physician] - Jt Obando [Primary Care Provider] - Disposition: HOME - Home Medications Comprehensive Discharge Medication List: Ambulatory Orders Lorazepam [Ativan] 0.5 mg PO PRN PRN 03/26/18 This patient is new to me today: Yes Date on this admission: 05/23/18 Emergency Visit: Yes ED Registration Date: 05/22/18 Care time: The patient presented to the Emergency Department on the above date and was hospitalized for further evaluation of their emergent condition. Critical Care patient: No - Discharge Referral Referred to [facility] Med P.C.: No
[2018-05-23] MEDS: HEPARIN NA (PORCINE) 5,000 UNITS/ML 1ML VIAL SQ SCH ×3 (15:13→22:36)
[2018-05-23 18:41] LABS: BASO % 0.6 % (0-2.0); HEMATOCRIT 31.2 % (32.4-45.2); HEMOGLOBIN 10.6 GM/dl (10.7-15.3); LYMPH % 25.2 % (8-40); MCH 31.9 pg (25.7-33.7); MEAN CELL VOLUME 93.8 fl (80-96); MEAN PLT VOLUME 9.9 fl (7.5-11.1); MONO % 9.2 % (3.8-10.2); PLATELET COUNT 244 K/MM3 (134-434); RBC 3.32 M/mm3 (3.60-5.2); RDW 13.4 % (11.6-15.6); WHITE BLOOD COUNT 7.3 K/mm3 (4.0-10.8)
[2018-05-23 18:47] LABS: ALBUMIN 3.2 g/dl (3.5-5.0); ALK PHOS 39 U/L (32-92); ANION GAP 6 (8-16); BILIRUBIN,TOTAL 0.2 mg/dl (0.2-1.0); BLOOD UREA NITROGEN 11 mg/dl (7-18); CALCIUM 8.1 mg/dl (8.4-10.2); CHLORIDE 108 mmol/L (98-107); CO2 20 mmol/L (22-28); CREATININE 0.8 mg/dl (0.6-1.3); GLUCOSE,RANDOM 95 mg/dl (74-106); POTASSIUM 4.3 mmol/L (3.5-5.1); SGOT/AST 14 U/L (10-42); SGPT/ALT 19 U/L (10-40); SODIUM 134 mmol/L (136-145); TOT PROT 5.6 g/dl (6.4-8.3)
--- NOTE | 2018-05-23 18:51 | CON.CARD ---
Consult Consult Specialty:: Cardiology - History of Present Illness Chief Complaint: CP History of Present Illness: 52yo F with autoimmune disorder admitted to the hospital because of abd pain and discomfort which was associated with nausea initially the pain was diffuse then it got localized to the rlq patient was worked up and found to have acute appendicitis on imaging studies and patient was taken to the operating room and was operated (lap apendectomy ) on May 22 Today AM hypotensive - thought to dehydration. Today evening chest pain. EKG CE pending Transfer to [facility] telemetry initiated. 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) - Past Surgical History Past Surgical History: Yes: Additional Surgical History: L orbital fx repair and sinus surgery after an accident - Alcohol/Substance Use Hx Alcohol Use: Yes (social ) History of Substance Use: reports: None - Smoking History Smoking history: Former smoker Have you smoked in the past 12 months: No If you are a former smoker, when did you quit?: 4 pk-yr hx in teens - Social History Usual Living Arrangement: With Spouse ADL: Independent Home Medications - Allergies Allergies/Adverse Reactions: Allergies Allergy/AdvReac Type Severity Reaction Status Date / Time Sulfa (Sulfonamide Allergy Verified 03/26/18 20:23 Antibiotics) - Home Medications Home Medications: Ambulatory Orders Lorazepam [Ativan] 0.5 mg PO PRN PRN 03/26/18 Review of Systems - Review of Systems Constitutional: reports: No Symptoms Eyes: reports: No Symptoms HENT: reports: No Symptoms Neck: reports: No Symptoms Cardiovascular: reports: Chest Pain Gastrointestinal: reports: No Symptoms Genitourinary: reports: No Symptoms Breasts: reports: No Symptoms Reported Musculoskeletal: reports: No Symptoms Integumentary: reports: No Symptoms Neurological: reports: No Symptoms Endocrine: reports: No Symptoms Hematology/Lymphatic: reports: No Symptoms Psychiatric: reports: No Symptoms Vital Signs: Vital Signs Temperature 97.9 F 05/23/18 18:35 Pulse Rate 46 L 05/23/18 18:35 Respiratory Rate 18 05/23/18 18:35 Blood Pressure 93/53 05/23/18 18:35 O2 Sat by Pulse Oximetry (%) 99 05/23/18 18:35 - Other Data Labs, Other Data: CBC, BMP 05/23/18 18:31 INR, PTT INR 0.98 (0.82-1.09) 05/22/18 10:50 Imaging - Results Chest X-ray: Image Reviewed (no i/e) EKG: Image Reviewed (s benito at [address] t wave changes no changes from before) Problem List - Problems (1) Acute appendicitis Code(s): K35.80 - UNSPECIFIED ACUTE APPENDICITIS Qualifiers: Acute appendicitis type: unspecified acute appendicitis type Qualified Code (s): K35.80 - Unspecified acute appendicitis (2) Appendicitis Code(s): K37 - UNSPECIFIED APPENDICITIS Qualifiers: Appendicitis type: acute appendicitis Acute appendicitis type: unspecified acute appendicitis type Qualified Code(s): K35.80 - Unspecified acute appendicitis (3) Nausea alone Code(s): R11.0 - NAUSEA (4) Obesity Code(s): E66.9 - OBESITY, UNSPECIFIED Qualifiers: Serious obesity comorbidity presence: without serious comorbidity (5) RLQ abdominal pain Code(s): R10.31 - RIGHT LOWER QUADRANT PAIN (6) Vestibular neuritis Code(s): H81.20 - VESTIBULAR NEURONITIS, UNSPECIFIED EAR Qualifiers: Laterality: unspecified laterality Qualified Code(s): H81.20 - Vestibular neuronitis, unspecified ear Assessment/Plan cp sx bradycardia s/p appendectomy POD #1 Plan transfer to [facility] telemetry r/o mi serial enzymes and ekgs echo stress test when stable cont dvt plx Chest CTA pending
[2018-05-23] MEDS: SODIUM CHLORIDE 1,000 ML IV SCH ×2 (19:43→22:32)
--- NOTE | 2018-05-23 21:44 | PN ---
Teaching Attending Note Name of Resident: Ryne Dominguez ATTENDING PHYSICIAN STATEMENT I saw and evaluated the patient. I reviewed the resident's note and discussed the case with the resident. I agree with the resident's findings and plan as documented. SUBJECTIVE: Patient is a 52 year old woman with history of anxiety disorder, previous pericarditis, and autoimmune disorder transferred from [facility] for hypotension, bradycardia, chestpain and SOB one day after laparoscopic appendectomy by Dr. Salazar. She received IV NS for hypotension at [facility], but has continued to have recurrent hypotension. She has continued to have chest pain which she describes as sharp, retrosternal and worse when lying down. She is reluctant to take any analgesics because she says she has a "bad reaction" to tylenol and motrin. There is no SOB at this time. EKG done at [facility] show sinus bradycardia with acute ST-T wave changes and CXR is remarkable for mild cardiomegaly. There has been no overt bleeding, vomiting or diarrhea and she has not had fever or chills. She got 2 doses of IV Zosyn over the past ?24 hours at [facility]. She has been evaluated by cardiology and CTPA ruled out PE. OBJECTIVE: Alert and looks comfortable, but anxious. Obese. Vital Signs Period Temp Pulse Resp BP Sys/Elkins Pulse Ox Last 24 Hr 97.5 F-986 F 43-74 16-19 75-100/39-61 93-100 HEENT: No Jaundice, eye redness or discharge, PERRLA, EOMI. Normocephalic, atraumatic. External ears are normal and hearing is grossly intact. No nasal discharge. Neck: Supple, nontender. No palpable adenopathy or thyromegaly. No JVD Chest: Good effort. Clear to auscultation and percussion. Heart: Regular. No S3, rub or murmur Abdomen: Not distended, soft, nontender and no HSM. No bleeding from surgical site. No rebound or guarding. Normoactive bowel sounds. Ext: Peripheral pulses intact. No leg edema. Skin: Warm and dry. No petechiae, rash or ecchymosis. Neuro: Alert. Oriented x3. CN 2-12 grossly intact. Sensation grossly intact in all four extremities and DTR are symmetric. Current Medications Generic Name Dose Route Start Last Admin Trade Name Freq PRN Reason Stop Dose Admin Acetaminophen 650 mg 05/23/18 11:34 05/23/18 12:54 Tylenol - PO 650 mg Q4H PRN Administration Pain Level 4 - 10 Heparin Sodium (Porcine) 5,000 unit 05/23/18 14:00 05/23/18 19:43 Heparin - SQ 5,000 unit TID SCOTT Administration Famotidine/Sodium Chloride 20 mg in 50 mls @ 100 mls/hr 05/22/18 10:00 10:19 Pepcid 20 Mg Premixed Ivpb - IVPB 100 mls/hr BID SCOTT Administration Sodium Chloride 1,000 mls @ 100 mls/hr 05/23/18 19:30 05/23/18 19:43 Normal Saline - IV 100 mls/hr ASDIR SCOTT Administration Sodium Chloride 1,000 mls @ 1,000 mls/hr 05/23/18 21:29 Normal Saline - IV 05/23/18 22:28 ASDIR STA Lorazepam 0.5 mg 05/22/18 10:08 Ativan - PO TID PRN ANXIETY Home Medications Medication Instructions Recorded Lorazepam [Ativan] 0.5 mg PO PRN PRN 03/26/18 Abnormal Lab Results 05/23/18 05/23/18 05/23/18 07:05 07:05 12:00 RBC 3.29 L 3.39 L Hgb 10.5 L Hct 30.8 L D 31.8 L Sodium Chloride Carbon Dioxide Anion Gap 7 L Random Glucose 108 H D Calcium 8.1 L Total Protein Albumin 05/23/18 05/23/18 18:31 18:31 RBC 3.32 L Hgb 10.6 L Hct 31.2 L Sodium 134 L Chloride 108 H Carbon Dioxide 20 L Anion Gap 6 L Random Glucose Calcium 8.1 L Total Protein 5.6 L Albumin 3.2 L ASSESSMENT AND PLAN: 1. Hypotension - Patient admitted to telemetry while we search for the cause of hypotension. No evidence of PE on CTPA. Will repeat sepsis work up with blood and urine cultures as well as lactic acid level. Monitor CBC to trend HCT, get sonogram of abdomen to detect any bleeding (has had 2 CT scans in past 24 hours) , get ECHO and monitor closely for pericardial tamponade. Urinalysis from [facility] showed evidence of UTI, so Zosyn will be restarted - 3.375 gm q 8 hours - with first dose stat. Serial EKG and troponin to rule out acute NE. Continue IV NS for BP support mindful of the cardiomegaly noted on CXR. CXR shows chronic interstitial infiltrates most prominent in RLL - she smoked for only 4 years long time ago. 2. Anxiety disorder - Will withhold Ativan for now in view of hypotension. 3. Anemia - Likely multifactorial. Will monitor closely to ensure there is no blood loss from surgical site. Do basic anemia work up including serial stool guaiacs, reticulocyte count and iron studies. 4. DVT prophylaxis - Heparin 5000u sq tid. 5. Advance directives - Full code
--- NOTE | 2018-05-23 23:34 | HP ---
CHIEF COMPLAINT: PCP: None HISTORY OF PRESENT ILLNESS: 52 y/o Female with PMHx of undifferentiated autoimmune disorder, Pericarditis, Exercise induced asthma, and Anxiety who is s/p Appendectomy POD#1 is transferred from [facility] for bradycardia and hypotension. Patient this morning complained of generalized weakness and mucosa dryness that began after receiving pain medications over night. Patient says she has reactions to many medications in the past including OTC meds. Her BP this past morning had reached 75/35 with a HR of 54. She recieved 1.5L of fluids and her BP climbed to 85/40. Around 11:00, patient started to feel SOB while walking and around 17: 00, patient started to feel chest pressure. Patient describes this as a sharp pain that became constant pressure in the midsternum and right side, 05/26 and NONreproducible. She feels excruciating pain when laying flat, that improves when sitting up. The patient is currently on 3L O2 via nasal cannula and does not feel SOB. Denies fever, chills, blurred vision, WOODRUFF, palpitaitons, Nausea, vomiting, Constipation, Diarrhea ER course was notable for: (1) EKG: Sinus bradycardia, Poor R Wave prgression (2) CXR: No evidence of active pulmonary disease. (3) CTA Recent Travel: None PAST MEDICAL HISTORY: See HPI PAST SURGICAL HISTORY: - X1 - Left orbital floor fracture - Appendectomy (05/20/18) Social History: Smoking: Former smoker in high school Alcohol: Socially Drugs: Denies Family History: - mom: lung/breast cancer - father: [place], alive and well Allergies Sulfa (Sulfonamide Antibiotics) Allergy (Verified 03/26/18 20:23) HOME MEDICATIONS: Home Medications Medication Instructions Recorded Lorazepam [Ativan] 0.5 mg PO PRN PRN 03/26/18 REVIEW OF SYSTEMS CONSTITUTIONAL: Absent: fever, chills, diaphoresis, generalized weakness, malaise, loss of appetite, weight change HEENT: Absent: rhinorrhea, nasal congestion, throat pain, throat swelling, difficulty swallowing, mouth swelling, ear pain, eye pain, visual changes CARDIOVASCULAR: +: chest pain Absent: syncope, palpitations, irregular heart rate, lightheadedness, peripheral edema RESPIRATORY: Absent: cough, shortness of breath, dyspnea with exertion, orthopnea, wheezing, stridor, hemoptysis GASTROINTESTINAL: Absent: abdominal pain, abdominal distension, nausea, vomiting, diarrhea, constipation, melena, hematochezia GENITOURINARY: Absent: dysuria, frequency, urgency, hesitancy, hematuria, flank pain, genital pain MUSCULOSKELETAL: Absent: myalgia, arthralgia, joint swelling, back pain, neck pain SKIN: Absent: rash, itching, pallor HEMATOLOGIC/IMMUNOLOGIC: Absent: easy bleeding, easy bruising, lymphadenopathy, frequent infections ENDOCRINE: Absent: unexplained weight gain, unexplained weight loss, heat intolerance, cold intolerance NEUROLOGIC: Absent: headache, focal weakness or paresthesias, dizziness, unsteady gait, seizure, mental status changes, bladder or bowel incontinence PSYCHIATRIC: Absent: anxiety, depression, suicidal or homicidal ideation, hallucinations. PHYSICAL EXAMINATION Vital Signs - 24 hr 05/23/18 05/23/18 05/23/18 02:00 06:30 06:44 Temperature 98.3 F 97.8 F Pulse Rate 45 L 45 L Respiratory 18 18 Rate Blood Pressure 90/47 75/39 O2 Sat by Pulse 93 L Oximetry (%) 05/23/18 05/23/18 05/23/18 07:00 07:20 08:10 Temperature 98.4 F Pulse Rate 45 L 44 L Respiratory 18 18 16 Rate Blood Pressure 77/42 81/49 O2 Sat by Pulse 95 99 98 Oximetry (%) 05/23/18 05/23/18 05/23/18 08:31 08:56 09:52 Temperature Pulse Rate 74 48 L 43 L Respiratory 18 Rate Blood Pressure 89/52 79/47 85/52 O2 Sat by Pulse 98 Oximetry (%) 05/23/18 05/23/18 05/23/18 10:00 11:30 14:00 Temperature 986 F H Pulse Rate 46 L 48 L 46 L Respiratory 16 Rate Blood Pressure 98/60 O2 Sat by Pulse 97 98 Oximetry (%) 05/23/18 05/23/18 05/23/18 14:25 14:30 14:53 Temperature 97.5 F L 97.6 F Pulse Rate 43 L 46 L 48 L Respiratory 18 16 Rate Blood Pressure 86/52 91/61 O2 Sat by Pulse 100 99 Oximetry (%) 05/23/18 05/23/18 05/23/18 15:00 15:58 17:15 Temperature Pulse Rate 49 L 49 L 47 L Respiratory 16 16 Rate Blood Pressure 100/59 95/46 O2 Sat by Pulse 100 Oximetry (%) 05/23/18 05/23/18 05/23/18 17:17 17:35 18:00 Temperature Pulse Rate 45 L 48 L 47 L Respiratory 16 16 Rate Blood Pressure 99/56 O2 Sat by Pulse 98 97 Oximetry (%) 05/23/18 05/23/18 05/23/18 18:35 19:40 21:10 Temperature 97.9 F 97.8 F 98.2 F Pulse Rate 46 L 52 L 48 L Respiratory 18 18 18 Rate Blood Pressure 93/53 84/46 86/50 O2 Sat by Pulse 99 Oximetry (%) 05/23/18 05/23/18 05/23/18 21:25 21:45 22:15 Temperature Pulse Rate 57 L 50 L 52 L Respiratory 18 18 18 Rate Blood Pressure 100/53 94/60 94/52 O2 Sat by Pulse Oximetry (%) 05/23/18 23:00 Temperature Pulse Rate 58 L Respiratory 18 Rate Blood Pressure 108/63 O2 Sat by Pulse Oximetry (%) GENERAL: Awake, alert, and fully oriented, in no acute distress. HEAD: Normal with no signs of trauma. LUNGS: Breath sounds equal, clear to auscultation bilaterally. No wheezes, no crackles HEART: Regular rate and rhythm, normal S1 and S2 without murmur, rub or gallop. ABDOMEN: Soft, nontender, not distended, normoactive bowel sounds, Surgical wounds covered in bandage, no drainage from wounds LOWER EXTREMITIES: 2+ pulses, warm, well-perfused. No peripheral edema. Laboratory Results - last 24 hr 05/23/18 05/23/18 05/23/18 07:05 07:05 12:00 WBC 7.4 7.7 RBC 3.29 L 3.39 L Hgb 10.5 L 10.8 Hct 30.8 L D 31.8 L MCV 93.9 93.9 MCH 31.9 31.9 MCHC 34.0 33.9 RDW 13.4 13.3 Plt Count 213 269 MPV 9.8 8.2 Absolute Neuts (auto) Neutrophils % Lymphocytes % Monocytes % Eosinophils % Basophils % Sodium 136 Potassium 4.3 Chloride 107 Carbon Dioxide 22 Anion Gap 7 L BUN 11 Creatinine 1.0 Creat Clearance w eGFR 57.78 Random Glucose 108 H D Calcium 8.1 L Total Bilirubin AST ALT Alkaline Phosphatase Troponin I Total Protein Albumin 05/23/18 05/23/18 05/23/18 18:31 18:31 18:31 WBC 7.3 RBC 3.32 L Hgb 10.6 L Hct 31.2 L MCV 93.8 MCH 31.9 MCHC 34.0 RDW 13.4 Plt Count 244 MPV 9.9 Absolute Neuts (auto) 4.7 Neutrophils % 64.0 Lymphocytes % 25.2 Monocytes % 9.2 Eosinophils % 1.0 Basophils % 0.6 Sodium 134 L Potassium 4.3 Chloride 108 H Carbon Dioxide 20 L Anion Gap 6 L BUN 11 Creatinine 0.8 Creat Clearance w eGFR > 60 Random Glucose 95 Calcium 8.1 L Total Bilirubin 0.2 AST 14 D ALT 19 Alkaline Phosphatase 39 Troponin I < 0.03 Total Protein 5.6 L Albumin 3.2 L Ambulatory Orders Lorazepam [Ativan] 0.5 mg PO PRN PRN 03/26/18 Active Medications Acetaminophen (Tylenol -) 650 mg PO Q4H PRN PRN Reason: Pain Level 4 - 10 Last Admin: 05/23/18 12:54 Dose: 650 mg Heparin Sodium (Porcine) (Heparin -) 5,000 unit SQ TID [facility] Last Admin: 05/23/18 22:36 Dose: Not Given Famotidine/Sodium Chloride (Pepcid 20 Mg Premixed Ivpb -) 20 mg in 50 mls @ 100 mls/hr IVPB BID [facility] Last Admin: 05/23/18 22:00 Dose: 100 mls/hr Sodium Chloride (Normal Saline -) 1,000 mls @ 100 mls/hr IV ASDIR [facility] Last Admin: 05/23/18 22:32 Dose: 100 mls/hr Piperacillin Sod/Tazobactam (Sod 3.375 gm/ Dextrose) 50 mls @ 100 mls/hr IVPB ONCE ONE; Protocol Stop: 05/24/18 00:29 Piperacillin Sod/Tazobactam (Sod 3.375 gm/ Dextrose) 50 mls @ 100 mls/hr IVPB ONCE ONE; Protocol Stop: 05/24/18 06:29 ASSESSMENT/PLAN: 1. Hypotension - Telemetry - CTA: Negative for PE - Repeat sepsis work up: blood and urine cultures pending, UA, lactic acid level , Trend HCT - Abdominal Ultrasound to detect any bleeding - UA from [facility]: 1+ Leuk esterase, 22 WBC - Restart Zosyn 3.375 gm q8h - Rule out ACS: Serial EKG and Troponin - 1.5L Bolus upon arrival, Continue IVF 2. Anxiety - Hold Ativan, can cause hypotension. 3. Anemia - Monitor closely - Stool guaiacs - Iron studies. 4. DVT PPx - Heparin 5000u sq tid. Visit type - Emergency Visit Emergency Visit: Yes ED Registration Date: 05/22/18 Care time: The patient presented to the Emergency Department on the above date and was hospitalized for further evaluation of their emergent condition. - New Patient This patient is new to me today: Yes Date on this admission: 05/24/18 - Critical Care Critical Care patient: No Hospitalist Screening - Colonoscopy Questionnaire Colonoscopy Questionnaire: Colonoscopy Questionnaire - Patient: 50 - 75 years old and never had a screening colonoscopy: Unknown History of colon or rectal polyps, or CA: Unknown History of IBD, Crohn's disease or UC: Unknown History of abdominal radiation therapy as a child: Unknown - Relative: 1 with colon or rectal CA, or polyps at age 60 or younger: Unknown Colon or rectal CA diagnosed at age 45 or younger: Unknown Multiple relatives with colon or rectal CA: Unknown - Outcome: Screening Result: Negative Screen
[2018-05-24] MEDS ORDERED: PIPERACILLIN/TAZOBACTAM 3.375 GM VIAL IVPB ONE ×2 (00:06→05:40)
[2018-05-24] MEDS ORDERED: DEXTROSE 5%-WATER - 50 ML IVPB ONE ×2 (00:07→05:40)
[2018-05-24 01:04] LABS: BASO % 0.3 % (0-2.0); EOS % 1.5 % (0-4.5); HEMATOCRIT 31.6 % (32.4-45.2); HEMOGLOBIN 10.7 GM/dL (10.7-15.3); LYMPH % 36.6 % (8-40); MCH 31.9 pg (25.7-33.7); MCHC 33.7 g/dl (32.0-36.0); MEAN CELL VOLUME 94.7 fl (80-96); MEAN PLT VOLUME 10.1 fl (7.5-11.1); MONO % 6.5 % (3.8-10.2); NEUT % 55.1 % (42.8-82.8); PLATELET COUNT 228 K/MM3 (134-434); RBC 3.34 M/mm3 (3.60-5.2); RDW 14.1 % (11.6-15.6); WHITE BLOOD COUNT 5.3 K/mm3 (4.0-10.0)
[2018-05-24 01:05] LABS: URINE APPEARANCE CLEAR; URINE BILIRUBIN NEGATIVE (<2.0 mg/dL); URINE COLOR LTYELLOW; URINE GLUCOSE (UA) NEGATIVE (NEGATIVE); URINE KETONE NEGATIVE (NEGATIVE); URINE LEUK ESTERASE NEGATIVE (NEGATIVE); URINE NITRITE NEGATIVE (NEGATIVE); URINE PROTEIN NEGATIVE (NEGATIVE); URINE UROBILINOGEN NEGATIVE mg/dL (0.2-1.0)
[2018-05-24 01:20] LABS: ALBUMIN 3.1 g/dl (3.4-5.0); ANION GAP 6 (8-16); BLOOD UREA NITROGEN 10 mg/dL (7-18); CALCIUM 7.7 mg/dL (8.5-10.1); CHLORIDE 116 mmol/L (98-107); CO2 23 mmol/L (21-32); CREATININE 0.8 mg/dL (0.55-1.02); GLUCOSE,RANDOM 98 mg/dL (74-106); PHOSPHOROUS 3.2 mg/dL (2.5-4.9); SGPT/ALT 28 U/L (12-78); SODIUM 145 mmol/L (136-145); TOT PROT 5.9 g/dl (6.4-8.2)
[2018-05-24 01:22] LABS: ALK PHOS 44 U/L (45-117)
[2018-05-24 01:36] LABS: BILIRUBIN,TOTAL < 0.1 mg/dL (0.2-1.0); POTASSIUM 4.5 mmol/L (3.5-5.1)
[2018-05-24 01:37] LABS: MAGNESIUM 2.2 mg/dL (1.8-2.4); SGOT/AST 18 U/L (15-37)
[2018-05-24] MEDS ORDERED: ALBUTEROL SO4 2.5/IPRATROPIUM 0.5 INH SOL 3 ML VIAL.NEB. NEB ONE (02:11)
[2018-05-24] MEDS: HEPARIN NA (PORCINE) 5,000 UNITS/ML 1ML VIAL SQ SCH ×3 (05:53→21:18)
[2018-05-24] MEDS ORDERED: PIPERACILLIN/TAZOB 3.375 GM 3.375 GM in DEXTROSE 5%-WATER - 50 ML IVPB ONE ×2 (06:00)
--- NOTE | 2018-05-24 08:20 | PN ---
Physical Exam: SUBJECTIVE: Patient seen and examined at bedside. Feels better. SOB has resolved. Has slight "pressure in my heart." OBJECTIVE: Vital Signs Period Temp Pulse Resp BP Sys/Elkins Pulse Ox Last 24 Hr 68.3 F-986 F 43-74 16-18 79-108/46-63 97-100 GENERAL: The patient is awake, alert, and fully oriented, in no acute distress. LUNGS: Breath sounds equal, clear to auscultation bilaterally, no wheezes, no crackles, no accessory muscle use. HEART: Regular rate and rhythm, S1, S2 without murmur, rub or gallop. ABDOMEN: Soft, nontender, nondistended EXTREMITIES: 2+ pulses, warm, well-perfused, no edema. NEUROLOGICAL: Cranial nerves II through XII grossly intact. Laboratory Results - last 24 hr 05/23/18 05/23/18 05/23/18 07:05 07:05 12:00 WBC 7.4 7.7 RBC 3.29 L 3.39 L Hgb 10.5 L 10.8 Hct 30.8 L D 31.8 L MCV 93.9 93.9 MCH 31.9 31.9 MCHC 34.0 33.9 RDW 13.4 13.3 Plt Count 213 269 MPV 9.8 8.2 Absolute Neuts (auto) Neutrophils % Lymphocytes % Monocytes % Eosinophils % Basophils % Nucleated RBC % Sodium 136 Potassium 4.3 Chloride 107 Carbon Dioxide 22 Anion Gap 7 L BUN 11 Creatinine 1.0 Creat Clearance w eGFR 57.78 Random Glucose 108 H D Lactic Acid Calcium 8.1 L Phosphorus Magnesium Total Bilirubin AST ALT Alkaline Phosphatase Creatine Kinase Troponin I Total Protein Albumin Urine Color Urine Appearance Urine pH Ur Specific Rickreall Urine Protein Urine Glucose (UA) Urine Ketones Urine Blood Urine Nitrite Urine Bilirubin Urine Urobilinogen Ur Leukocyte Esterase 05/23/18 05/23/18 05/23/18 18:31 18:31 18:31 WBC 7.3 RBC 3.32 L Hgb 10.6 L Hct 31.2 L MCV 93.8 MCH 31.9 MCHC 34.0 RDW 13.4 Plt Count 244 MPV 9.9 Absolute Neuts (auto) 4.7 Neutrophils % 64.0 Lymphocytes % 25.2 Monocytes % 9.2 Eosinophils % 1.0 Basophils % 0.6 Nucleated RBC % Sodium 134 L Potassium 4.3 Chloride 108 H Carbon Dioxide 20 L Anion Gap 6 L BUN 11 Creatinine 0.8 Creat Clearance w eGFR > 60 Random Glucose 95 Lactic Acid Calcium 8.1 L Phosphorus Magnesium Total Bilirubin 0.2 AST 14 D ALT 19 Alkaline Phosphatase 39 Creatine Kinase Troponin I < 0.03 Total Protein 5.6 L Albumin 3.2 L Urine Color Urine Appearance Urine pH Ur Specific Rickreall Urine Protein Urine Glucose (UA) Urine Ketones Urine Blood Urine Nitrite Urine Bilirubin Urine Urobilinogen Ur Leukocyte Esterase 05/24/18 05/24/18 05/24/18 00:00 00:00 00:00 WBC 5.3 RBC 3.34 L Hgb 10.7 Hct 31.6 L MCV 94.7 MCH 31.9 MCHC 33.7 RDW 14.1 Plt Count 228 MPV 10.1 Absolute Neuts (auto) 2.9 Neutrophils % 55.1 Lymphocytes % 36.6 Monocytes % 6.5 Eosinophils % 1.5 Basophils % 0.3 Nucleated RBC % 0 Sodium 145 Potassium 4.5 Chloride 116 H Carbon Dioxide 23 Anion Gap 6 L BUN 10 Creatinine 0.8 Creat Clearance w eGFR > 60 Random Glucose 98 Lactic Acid Calcium 7.7 L Phosphorus 3.2 Magnesium 2.2 Total Bilirubin < 0.1 L AST 18 ALT 28 Alkaline Phosphatase 44 L D Creatine Kinase 68 Troponin I 0.04 0.05 Total Protein 5.9 L Albumin 3.1 L Urine Color Urine Appearance Urine pH Ur Specific Rickreall Urine Protein Urine Glucose (UA) Urine Ketones Urine Blood Urine Nitrite Urine Bilirubin Urine Urobilinogen Ur Leukocyte Esterase 05/24/18 05/24/18 00:00 00:00 WBC RBC Hgb Hct MCV MCH MCHC RDW Plt Count MPV Absolute Neuts (auto) Neutrophils % Lymphocytes % Monocytes % Eosinophils % Basophils % Nucleated RBC % Sodium Potassium Chloride Carbon Dioxide Anion Gap BUN Creatinine Creat Clearance w eGFR Random Glucose Lactic Acid 1.2 Calcium Phosphorus Magnesium Total Bilirubin AST ALT Alkaline Phosphatase Creatine Kinase Troponin I Total Protein Albumin Urine Color Ltyellow Urine Appearance Clear Urine pH 5.0 Ur Specific Rickreall 1.013 Urine Protein Negative Urine Glucose (UA) Negative Urine Ketones Negative Urine Blood Negative Urine Nitrite Negative Urine Bilirubin Negative Urine Urobilinogen Negative Ur Leukocyte Esterase Negative Active Medications Generic Name Dose Route Start Last Admin Trade Name Freq PRN Reason Stop Dose Admin Acetaminophen 650 mg 05/23/18 11:34 05/23/18 12:54 Tylenol - PO 650 mg Q4H PRN Administration Pain Level 4 - 10 Heparin Sodium (Porcine) 5,000 unit 05/23/18 14:00 05/24/18 05:53 Heparin - SQ 5,000 unit TID SCOTT Administration Famotidine/Sodium Chloride 20 mg in 50 mls @ 100 mls/hr 05/22/18 10:00 22:00 Pepcid 20 Mg Premixed Ivpb - IVPB 100 mls/hr BID SCOTT Administration Sodium Chloride 1,000 mls @ 100 mls/hr 05/23/18 19:30 05/23/18 22:32 Normal Saline - IV 100 mls/hr ASDIR SCOTT Administration ASSESSMENT/PLAN 52 year-old female with a PMH significant for anxiety, pericarditis (2011), and 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 Patient was admitted on 05/22/18 for acute appendicitis and underwent lap appy that same day with Dr. Salazar. Patient was seen and evaluated on 05/23/18 and discharged to home. Following the discharge , while patient was still in [facility], she developed SOB and chest pain. She was seen by the ED physician at [facility] and transferred to [facility] telemetry on the evening of 05/23/18 for further evaluation. Acute appendicitis s/p laparoscopic appendectomy --POD #2 --trochanter sites with sterile dressings, c/d/i; minimal ecchymosis around several of the sites, no edema, no erythema --pain well-managed --has had several BMs --tolerating diet Hypotension Bradycardia --hypotension improved with IV fluids; BP usually runs on low side --asymptomatic bradycardia --there was concern for post-op bleeding, CT scan unremarkable --there was concern for possible infectious process, has remained afebrile, no leukocytosis, no SIRS criteria Chest pain SOB --troponins neg x 3 --serial ECGs not suggestive of acute ischemic event --CTA negative for PE; no acute pulmonary process --echo tomorrow --patient will not be able to do treadmill tomorrow due to post-op status and does not want nuclear study due to autoimmune disorder that affects the way she metabolizes medications; discussed with patient, she will likely be able to do stress testing as outpatient --Protonix BID Anxiety --lorazepam qhs PRN FEN Fluids: PO intake adequate Electrolytes: replete as indicated Nutrition: regular diet; NPO after midnight DVT prophylaxis: subq heparin Dispo: continues to require inpatient care. Full Code. Visit type - Emergency Visit Emergency Visit: Yes ED Registration Date: 05/22/18 Care time: The patient presented to the Emergency Department on the above date and was hospitalized for further evaluation of their emergent condition. - New Patient This patient is new to me today: Yes Date on this admission: 05/24/18 - Critical Care Critical Care patient: No
--- NOTE | 2018-05-24 08:39 | PN ---
Progress Note, Physician History of Present Illness: 52yo F with autoimmune disorder admitted to the hospital because of abd pain and discomfort which was associated with nausea initially the pain was diffuse then it got localized to the rlq patient was worked up and found to have acute appendicitis on imaging studies and patient was taken to the operating room and was operated (lap apendectomy ) on May 22 Today AM hypotensive - thought to dehydration. Today evening chest pain. EKG CE pending Transfer to [facility] telemetry initiated. - Current Medication List Current Medications: Active Medications Acetaminophen (Tylenol -) 650 mg PO Q4H PRN PRN Reason: Pain Level 4 - 10 Last Admin: 05/23/18 12:54 Dose: 650 mg Heparin Sodium (Porcine) (Heparin -) 5,[address] [facility] Last Admin: 05/24/18 05:53 Dose: 5,000 unit Famotidine/Sodium Chloride (Pepcid 20 Mg Premixed Ivpb -) 20 mg in 50 mls @ 100 mls/hr IVPB BID [facility] Last Admin: 05/23/18 22:00 Dose: 100 mls/hr Sodium Chloride (Normal Saline -) 1,000 mls @ 100 mls/hr IV ASDIR [facility] Last Admin: 05/23/18 22:32 Dose: 100 mls/hr - Objective Vital Signs: Vital Signs Temperature 68.3 F L 05/24/18 06:00 Pulse Rate 62 05/24/18 06:00 Respiratory Rate 18 05/24/18 06:00 Blood Pressure 102/58 05/24/18 06:00 O2 Sat by Pulse Oximetry (%) 100 05/23/18 22:00 Eyes: Yes: WNL, Conjunctiva Clear, EOM Intact HENT: Yes: WNL, Atraumatic, Normocephalic Neck: Yes: WNL, Supple, Trachea Midline Cardiovascular: Yes: WNL, Regular Rate and Rhythm Respiratory: Yes: WNL, Regular, CTA Bilaterally Gastrointestinal: Yes: WNL, Normal Bowel Sounds Genitourinary: Yes: WNL Musculoskeletal: Yes: WNL Extremities: Yes: WNL Edema: No Integumentary: Yes: WNL Neurological: Yes: WNL, Alert, Oriented ...Motor Strength: WNL Psychiatric: Yes: WNL Labs: CBC, BMP 05/24/18 00:00 05/24/18 00:00 INR, PTT INR 0.98 (0.82-1.09) 05/22/18 10:50 Laboratory Tests 05/22/18 05/22/18 05/22/18 00:35 00:35 00:35 WBC 4.5 RBC 3.86 Hgb 12.3 Hct 36.3 MCV 94.0 MCH 31.9 MCHC 33.9 RDW 13.7 Plt Count 236 MPV 9.4 Absolute Neuts (auto) 2.3 Neutrophils % 50.5 Lymphocytes % 33.8 Monocytes % 12.8 H Eosinophils % 2.7 Basophils % 0.2 Nucleated RBC % 0 PT with INR INR Sodium 143 Potassium 3.7 Chloride 108 H Carbon Dioxide 27 Anion Gap 8 BUN 11 Creatinine 0.8 Creat Clearance w eGFR > 60 Random Glucose 105 Lactic Acid Calcium 8.5 Phosphorus Magnesium Ferritin Total Bilirubin 0.3 AST 19 ALT 31 Alkaline Phosphatase 58 Creatine Kinase Troponin I Total Protein 6.8 Albumin 3.5 Lipase 152 Urine Color Yellow Urine Appearance Slcloudy Urine pH 5.0 Ur Specific [place] 1.026 Urine Protein Negative Urine Glucose (UA) Negative Urine Ketones Negative Urine Blood Negative Urine Nitrite Negative Urine Bilirubin Negative Urine Urobilinogen Negative Ur Leukocyte Esterase 1+ H Urine WBC (Auto) 22 Urine RBC (Auto) 7 Ur Epithelial Cells Rare Calcium Oxalate Crystal Moderate Urine Bacteria Rare Granular Casts 3 Urine Mucus Few Blood Type Antibody Screen 05/22/18 05/22/18 05/22/18 10:35 10:50 10:50 WBC RBC Hgb Hct MCV MCH MCHC RDW Plt Count MPV Absolute Neuts (auto) Neutrophils % Lymphocytes % Monocytes % Eosinophils % Basophils % Nucleated RBC % PT with INR 11.0 INR 0.98 Sodium Potassium Chloride Carbon Dioxide Anion Gap BUN Creatinine Creat Clearance w eGFR Random Glucose Lactic Acid Calcium Phosphorus Magnesium Ferritin Total Bilirubin AST ALT Alkaline Phosphatase Creatine Kinase Troponin I Total Protein Albumin Lipase Urine Color Urine Appearance Urine pH Ur Specific [place] Urine Protein Urine Glucose (UA) Urine Ketones Urine Blood Urine Nitrite Urine Bilirubin Urine Urobilinogen Ur Leukocyte Esterase Urine WBC (Auto) Urine RBC (Auto) Ur Epithelial Cells Calcium Oxalate Crystal Urine Bacteria Granular Casts Urine Mucus Blood Type A NEGATIVE A NEGATIVE Antibody Screen Negative 05/23/18 05/23/18 05/23/18 07:05 07:05 12:00 WBC 7.4 7.7 RBC 3.29 L 3.39 L Hgb 10.5 L 10.8 Hct 30.8 L D 31.8 L MCV 93.9 93.9 MCH 31.9 31.9 MCHC 34.0 33.9 RDW 13.4 13.3 Plt Count 213 269 MPV 9.8 8.2 Absolute Neuts (auto) Neutrophils % Lymphocytes % Monocytes % Eosinophils % Basophils % Nucleated RBC % PT with INR INR Sodium 136 Potassium 4.3 Chloride 107 Carbon Dioxide 22 Anion Gap 7 L BUN 11 Creatinine 1.0 Creat Clearance w eGFR 57.78 Random Glucose 108 H D Lactic Acid Calcium 8.1 L Phosphorus Magnesium Ferritin Total Bilirubin AST ALT Alkaline Phosphatase Creatine Kinase Troponin I Total Protein Albumin Lipase Urine Color Urine Appearance Urine pH Ur Specific [place] Urine Protein Urine Glucose (UA) Urine Ketones Urine Blood Urine Nitrite Urine Bilirubin Urine Urobilinogen Ur Leukocyte Esterase Urine WBC (Auto) Urine RBC (Auto) Ur Epithelial Cells Calcium Oxalate Crystal Urine Bacteria Granular Casts Urine Mucus Blood Type Antibody Screen 05/23/18 05/23/18 05/23/18 18:31 18:31 18:31 WBC 7.3 RBC 3.32 L Hgb 10.6 L Hct 31.2 L MCV 93.8 MCH 31.9 MCHC 34.0 RDW 13.4 Plt Count 244 MPV 9.9 Absolute Neuts (auto) 4.7 Neutrophils % 64.0 Lymphocytes % 25.2 Monocytes % 9.2 Eosinophils % 1.0 Basophils % 0.6 Nucleated RBC % PT with INR INR Sodium 134 L Potassium 4.3 Chloride 108 H Carbon Dioxide 20 L Anion Gap 6 L BUN 11 Creatinine 0.8 Creat Clearance w eGFR > 60 Random Glucose 95 Lactic Acid Calcium 8.1 L Phosphorus Magnesium Ferritin Total Bilirubin 0.2 AST 14 D ALT 19 Alkaline Phosphatase 39 Creatine Kinase Troponin I < 0.03 Total Protein 5.6 L Albumin 3.2 L Lipase Urine Color Urine Appearance Urine pH Ur Specific [place] Urine Protein Urine Glucose (UA) Urine Ketones Urine Blood Urine Nitrite Urine Bilirubin Urine Urobilinogen Ur Leukocyte Esterase Urine WBC (Auto) Urine RBC (Auto) Ur Epithelial Cells Calcium Oxalate Crystal Urine Bacteria Granular Casts Urine Mucus Blood Type Antibody Screen 05/24/18 05/24/18 05/24/18 00:00 00:00 00:00 WBC 5.3 RBC 3.34 L Hgb 10.7 Hct 31.6 L MCV 94.7 MCH 31.9 MCHC 33.7 RDW 14.1 Plt Count 228 MPV 10.1 Absolute Neuts (auto) 2.9 Neutrophils % 55.1 Lymphocytes % 36.6 Monocytes % 6.5 Eosinophils % 1.5 Basophils % 0.3 Nucleated RBC % 0 PT with INR INR Sodium 145 Potassium 4.5 Chloride 116 H Carbon Dioxide 23 Anion Gap 6 L BUN 10 Creatinine 0.8 Creat Clearance w eGFR > 60 Random Glucose 98 Lactic Acid Calcium 7.7 L Phosphorus 3.2 Magnesium 2.2 Ferritin Total Bilirubin < 0.1 L AST 18 ALT 28 Alkaline Phosphatase 44 L D Creatine Kinase 68 Troponin I 0.04 0.05 Total Protein 5.9 L Albumin 3.1 L Lipase Urine Color Urine Appearance Urine pH Ur Specific [place] Urine Protein Urine Glucose (UA) Urine Ketones Urine Blood Urine Nitrite Urine Bilirubin Urine Urobilinogen Ur Leukocyte Esterase Urine WBC (Auto) Urine RBC (Auto) Ur Epithelial Cells Calcium Oxalate Crystal Urine Bacteria Granular Casts Urine Mucus Blood Type Antibody Screen 05/24/18 05/24/18 05/24/18 00:00 00:00 05:45 WBC RBC Hgb Hct MCV MCH MCHC RDW Plt Count MPV Absolute Neuts (auto) Neutrophils % Lymphocytes % Monocytes % Eosinophils % Basophils % Nucleated RBC % PT with INR INR Sodium Potassium Chloride Carbon Dioxide Anion Gap BUN Creatinine Creat Clearance w eGFR Random Glucose Lactic Acid 1.2 Calcium Phosphorus Magnesium Ferritin 61.4 Total Bilirubin AST ALT Alkaline Phosphatase Creatine Kinase Troponin I Total Protein Albumin Lipase Urine Color Ltyellow Urine Appearance Clear Urine pH 5.0 Ur Specific [place] 1.013 Urine Protein Negative Urine Glucose (UA) Negative Urine Ketones Negative Urine Blood Negative Urine Nitrite Negative Urine Bilirubin Negative Urine Urobilinogen Negative Ur Leukocyte Esterase Negative Urine WBC (Auto) Urine RBC (Auto) Ur Epithelial Cells Calcium Oxalate Crystal Urine Bacteria Granular Casts Urine Mucus Blood Type Antibody Screen Problem List - Problems (1) Acute appendicitis Code(s): K35.80 - UNSPECIFIED ACUTE APPENDICITIS Qualifiers: Acute appendicitis type: unspecified acute appendicitis type Qualified Code (s): K35.80 - Unspecified acute appendicitis (2) Appendicitis Code(s): K37 - UNSPECIFIED APPENDICITIS Qualifiers: Appendicitis type: acute appendicitis Acute appendicitis type: unspecified acute appendicitis type Qualified Code(s): K35.80 - Unspecified acute appendicitis (3) Nausea alone Code(s): R11.0 - NAUSEA (4) Obesity Code(s): E66.9 - OBESITY, UNSPECIFIED Qualifiers: Serious obesity comorbidity presence: without serious comorbidity (5) RLQ abdominal pain Code(s): R10.31 - RIGHT LOWER QUADRANT PAIN (6) Vestibular neuritis Code(s): H81.20 - VESTIBULAR NEURONITIS, UNSPECIFIED EAR Qualifiers: Laterality: unspecified laterality Qualified Code(s): H81.20 - Vestibular neuronitis, unspecified ear Assessment/Plan atypical cp - sharp short lasting bradycardia s/p appendectomy POD #2 Plan conttelemetry r/o mi serial enzymes and ekgs echo stress test when stable cont dvt plx Chest CTA preliminary report neg for pepending
--- NOTE | 2018-05-24 10:14 | EKG ---
Test Reason : Blood Pressure : / mmHG Vent. Rate : 056 BPM Atrial Rate : 056 BPM P-R Int : 150 ms QRS Dur : 070 ms QT Int : 434 ms P-R-T Axes : 030 007 009 degrees QTc Int : 418 ms SINUS BRADYCARDIA LOW VOLTAGE QRS CANNOT RULE OUT ANTERIOR INFARCT , AGE UNDETERMINED ABNORMAL ECG WHEN COMPARED WITH ECG OF 23-MAY-2018 17:09, NO SIGNIFICANT CHANGE WAS FOUND Confirmed by ELSA BARRY, NAYELI ([id number]) on 05/24/2018 10:14:09 AM Referred By: Confirmed By:NAYELI HUNTER MD
--- NOTE | 2018-05-24 10:15 | EKG ---
Test Reason : Blood Pressure : / mmHG Vent. Rate : 045 BPM Atrial Rate : 045 BPM P-R Int : 148 ms QRS Dur : 072 ms QT Int : 426 ms P-R-T Axes : 030 007 013 degrees QTc Int : 368 ms SINUS BRADYCARDIA LOW VOLTAGE QRS BORDERLINE ECG WHEN COMPARED WITH ECG OF 22-MAY-2018 03:47, NO SIGNIFICANT CHANGE WAS FOUND Confirmed by NAYELI HUNTER MD ([id number]) on 05/24/2018 10:14:46 AM Referred By: SOFÍA LEIVA Confirmed By:NAYELI HUNTER MD
[2018-05-24] MEDS: FAMOTIDINE 20 MG/50 ML IVPB 20 MG/50 ML MG IVPB SCH (10:39)
--- NOTE | 2018-05-24 12:09 | PN ---
Progress Note, Physician History of Present Illness: stable patient was txed to [facility] because of cardiac issues cardiac on case - Current Medication List Current Medications: Active Medications Acetaminophen (Tylenol -) 650 mg PO Q4H PRN PRN Reason: Pain Level 4 - 10 Last Admin: 05/23/18 12:54 Dose: 650 mg Heparin Sodium (Porcine) (Heparin -) 5,000 unit SQ TID [facility] Last Admin: 05/24/18 05:53 Dose: 5,000 unit Famotidine/Sodium Chloride (Pepcid 20 Mg Premixed Ivpb -) 20 mg in 50 mls @ 100 mls/hr IVPB BID [facility] Last Admin: 05/24/18 10:39 Dose: 100 mls/hr - Objective Vital Signs: Vital Signs Temperature 68.3 F L 05/24/18 06:00 Pulse Rate 62 05/24/18 06:00 Respiratory Rate 18 05/24/18 06:00 Blood Pressure 102/58 05/24/18 06:00 O2 Sat by Pulse Oximetry (%) 100 05/23/18 22:00 Constitutional: Yes: No Distress, Calm Cardiovascular: Yes: Regular Rate and Rhythm Respiratory: Yes: Regular, CTA Bilaterally Gastrointestinal: Yes: Normal Bowel Sounds, Soft Musculoskeletal: Yes: WNL Extremities: Yes: WNL Neurological: Yes: Alert, Oriented Psychiatric: Yes: Alert, Oriented Labs: CBC, BMP 05/24/18 00:00 05/24/18 00:00 INR, PTT INR 0.98 (0.82-1.09) 05/22/18 10:50 - ....Imaging Cat Scan: Report Reviewed, Image Reviewed Ultrasound: Report Reviewed, Image Reviewed Assessment/Plan Problem List - Problems (1) Appendicitis Code(s): K37 - UNSPECIFIED APPENDICITIS Qualifiers: Appendicitis type: acute appendicitis Acute appendicitis type: unspecified acute appendicitis type Qualified Code(s): K35.80 - Unspecified acute appendicitis (2) Nausea alone Code(s): R11.0 - NAUSEA (3) RLQ abdominal pain Code(s): R10.31 - RIGHT LOWER QUADRANT PAIN plan post op patient stable cardio on board continue current mgmt no abx
[2018-05-24] MEDS ORDERED: LORazepam 0.5 MG TABLET PO PRN (15:29)
--- NOTE | 2018-05-24 17:30 | PN ---
Progress Note, Physician History of Present Illness: s/p lap appy for acute appendicitis Pt was to be discharged home yesterday from [facility], but had SOB around 2:30 pm and chest pain a couple of hours later. Events of yesterday noted, including cardio consult, CTA - negative for PE, troponins negative x2, other labs stable/ normal. Pt was transferred to [facility] telemetry unit with bradycardia and hypotension, responsive to fluids. Pt is seen and examined in her room with father and stepmother at bedside. Per family, bradycardia is hereditary - father has it too. She does know she has been told before her BP has been low, but did not know her numbers. She currently feels much better overall. She has had lots of belching and gas, and had BM today as well. Tolerating diet. No n/v. No fevers. She has been ambulating without any further SOB or chest pain. She does sometimes get acid reflux-like symptoms as well, but denies any now. She has had a little more discomfort in her abdominal incisions today, but has not taken any Tylenol or pain medicine today. There is an echo pending in am, and nuc med stress test was recommended by cardiology at some point. - Current Medication List Current Medications: Active Medications Acetaminophen (Tylenol -) 650 mg PO Q4H PRN PRN Reason: Pain Level 4 - 10 Last Admin: 05/23/18 12:54 Dose: 650 mg Heparin Sodium (Porcine) (Heparin -) 5,000 unit SQ [facility]ID [facility] Last Admin: 05/24/18 13:34 Dose: 5,000 unit Lorazepam (Ativan -) 0.5 mg PO BID PRN PRN Reason: ANXIETY Pantoprazole Sodium (Protonix -) 40 mg PO BID [facility] - Objective Vital Signs: Vital Signs Temperature 97.8 F 05/24/18 14:10 Pulse Rate 58 L 05/24/18 14:10 Respiratory Rate 18 05/24/18 14:10 Blood Pressure 100/59 05/24/18 14:10 O2 Sat by Pulse Oximetry (%) 99 05/24/18 10:00 Vital Signs Period Temp Pulse Resp BP Sys/Elkins Pulse Ox Last 24 Hr 68.3 F-98.6 F 50-62 18-20 100-125/56-63 98-99 Constitutional: Yes: Well Nourished, No Distress, Calm Eyes: Yes: Conjunctiva Clear, EOM Intact HENT: Yes: Atraumatic, Normocephalic Cardiovascular: Yes: Bradycardia. No: Pulse Irregular Respiratory: Yes: Regular, CTA Bilaterally. No: SOB Gastrointestinal: Yes: Normal Bowel Sounds, Soft, Abdomen, Obese, Tenderness ( mild incisional only), Other (incisions x3 dressed). No: Tenderness, Epigastrium ...Rectal Exam: Yes: Deferred Musculoskeletal: No: Joint Stiffness, Joint Swelling Extremities: No: Cool, Cyanosis Integumentary: Yes: Bruising (around incisions only), Incision (x3 dressed). No : Rash Wound/Incision: Yes: Clean/Dry, Well Approximated, Steri Strips, Open to air ( left OLIVIA), Dressing Dry and Intact (x3), Dressing Removed, Other (mild bruising at edges of all incisions, least at suprapubic, most at umbilical site, no blisters) Neurological: Yes: Alert, Oriented. No: Unsteady Gait Labs: CBC, BMP 05/24/18 00:00 05/24/18 00:00 Troponin, BNP 05/24/18 05/24/18 05/24/18 00:00 00:00 10:00 Troponin I 0.04 0.05 0.02 Urine Test Results Urine Color Ltyellow 05/24/18 00:00 Urine Appearance Clear 05/24/18 00:00 Urine pH 5.0 (5.0-8.0) 05/24/18 00:00 Ur Specific [place] 1.013 (1.001-1.035) 05/24/18 00:00 Urine Protein Negative (NEGATIVE) 05/24/18 00:00 Urine Glucose (UA) Negative (NEGATIVE) 05/24/18 00:00 Urine Ketones Negative (NEGATIVE) 05/24/18 00:00 Urine Blood Negative (NEGATIVE) 05/24/18 00:00 Urine Nitrite Negative (NEGATIVE) 05/24/18 00:00 Urine Bilirubin Negative (<2.0 mg/dL) 05/24/18 00:00 Ur Leukocyte Esterase Negative (NEGATIVE) 05/24/18 00:00 - ....Imaging Cat Scan: Report Reviewed (chest CTA with no PE), Image Reviewed Problem List - Problems (1) Appendicitis Assessment/Plan: POD2 s/p laparoscopic appendectomy stable bradycardia and low normal BP cardiac workup negative thus far bradycardia hereditary per pt's father pain minimal, not using Tylenol yet tolerating diet antibiotics d/c'd postop instructions in d/c plan - discussed with pt and at bedside dressings removed - incisions with steri's intact, may shower bruising anticipated to resolve over time ok for d/c home from surgical standpoint, probably tomorrow after echo Code(s): K37 - UNSPECIFIED APPENDICITIS Qualifiers: Appendicitis type: acute appendicitis Acute appendicitis type: unspecified acute appendicitis type Qualified Code(s): K35.80 - Unspecified acute appendicitis (2) SOB (shortness of breath) Assessment/Plan: resolved Code(s): R06.02 - SHORTNESS OF BREATH (3) Chest pain, atypical Assessment/Plan: resolved Code(s): R07.89 - OTHER CHEST PAIN
[2018-05-24] MEDS: PANTOPRAZOLE 40 MG TABLET (FP) PO SCH ×3 (17:35→22:23)
[2018-05-24] MEDS ORDERED: ACETAMINOPHEN 325 MG TABLET (FP) PO PRN (21:12)
[2018-05-24] MEDS ORDERED: LORazepam 1 MG TABLET PO PRN (22:08)
[2018-05-25] MEDS ORDERED: HEPARIN NA (PORCINE) 5,000 UNITS/ML 1ML VIAL SQ SCH (06:00)
[2018-05-25 06:06] LABS: SERUM IRON SATURATION 21 % (15-55); TOTAL IRON BINDING CAPACITY 272 ug/dL (250-450); UIBC 215 ug/dL (131-425)
[2018-05-25 07:23] LABS: ANION GAP 7 (8-16); BLOOD UREA NITROGEN 6 mg/dL (7-18); CALCIUM 8.3 mg/dL (8.5-10.1); CHLORIDE 110 mmol/L (98-107); CO2 28 mmol/L (21-32); GLUCOSE,RANDOM 89 mg/dL (74-106); MAGNESIUM 2.2 mg/dL (1.8-2.4); SODIUM 145 mmol/L (136-145)
[2018-05-25] MEDS: PANTOPRAZOLE 40 MG TABLET (FP) PO SCH (09:35)
--- NOTE | 2018-05-25 11:15 | DS ---
Physical Exam: SUBJECTIVE: Patient seen and examined OBJECTIVE: Vital Signs Period Temp Pulse Resp BP Sys/Elkins Pulse Ox Last 24 Hr 97.8 F-100.7 F 50-91 16-20 100-125/56-68 98 PHYSICAL EXAM GENERAL: The patient is awake, alert, and fully oriented, in no acute distress. HEAD: Normal with no signs of trauma. EYES: PERRL, extraocular movements intact, sclera anicteric, conjunctiva clear. ENT: Ears normal, nares patent, oropharynx clear without exudates, moist mucous membranes. NECK: Trachea midline, full range of motion, supple. LUNGS: Breath sounds equal, clear to auscultation bilaterally, no wheezes, no crackles, no accessory muscle use. HEART: Regular rate and rhythm, S1, S2 without murmur, rub or gallop. ABDOMEN: Soft, nontender, nondistended, normoactive bowel sounds, no guarding, no rebound, no hepatosplenomegaly, no masses. EXTREMITIES: 2+ pulses, warm, well-perfused, no edema. NEUROLOGICAL: Cranial nerves II through XII grossly intact. Normal speech, gait not observed. PSYCH: Normal mood, normal affect. SKIN: Warm, dry, normal turgor, no rashes or lesions noted. LABS Laboratory Results - last 24 hr 05/24/18 05/24/18 05/25/18 05:45 10:00 05:30 Sodium 145 Potassium 4.0 Chloride 110 H Carbon Dioxide 28 Anion Gap 7 L BUN 6 L Creatinine 1.0 Creat Clearance w eGFR 57.78 Random Glucose 89 Calcium 8.3 L Magnesium 2.2 Iron 57 TIBC 272 Iron Saturation 21 Troponin I 0.02 HOSPITAL COURSE: Date of Admission:05/22/18 Date of Discharge: 05/25/18 Minutes to complete discharge: 35 Discharge Summary Reason For Visit: ABDOMINAL PAIN Current Active Problems Acute appendicitis (Acute) Appendicitis (Acute) Chest pain, atypical (Acute) Nausea alone (Acute) Obesity (Acute) RLQ abdominal pain (Acute) SOB (shortness of breath) (Acute) Condition: Improved - Instructions Diet, Activity, Other Instructions: Postoperative instructions: You had a laparoscopic appendectomy on 05/22/[address] John Salazar of [facility]. Activity: Resume your usual activities gradually, but no heavy exertion or lifting more than 10-15 pounds for 1 month. Remove dressings 48 hours after surgery; sticky tapes underneath will fall off by themselves. You may shower daily starting then, just pat the incision areas dry. No bath or swimming until skin incisions have healed. Eat lightly at first, but advance to your usual diet as tolerated. Pain: For pain, you may use and alternate Tylenol (acetaminophen) 1-2 tablets ( regular or extra strength) and/or ibuprofen 200mg (x1-3 pills) every 6 hours each as needed; this means that you can take one OR the other at 3-hour intervals. IF you are prescribed a Tylenol/narcotic combination for severe pain , use it instead of plain Tylenol as needed and switch back when your pain starts decreasing. Do not take more than 4000mg of acetaminophen in a day. Take medications as prescribed or indicated on the labeling. Follow-up: Call Dr. Salazar's office at [phone] to make your postop appointment (Friday ~2 weeks after surgery). Clinic is held in the Diagnostic Center on the first floor of [facility] at [address] [facility] in [place]. Call the office if you have: * increasing pain not responsive to pain medication * fever of 101F or higher * vomiting * unusual or increasing bleeding or drainage from wounds * increasing redness or swelling at wound sites * inability to urinate Also, see your primary medical doctor within 1-2 weeks. You were also seen and evaluated for chest pain and you underwent cardiac testing including an echocardiagram. It is recommended you follow up with a four slide machine setter for stress testing. You indicated an interest in seeing Dr. Raymundo. His contact information is enclosed. Please call his office today to schedule an appointment. He will have access to your hospital records. Referrals: John Salazar MD [Staff Physician] - Trino Peck MD [Staff Physician] - Disposition: HOME - Home Medications Comprehensive Discharge Medication List: Ambulatory Orders Lorazepam [Ativan] 0.5 mg PO PRN PRN 03/26/18 - Discharge Referral Referred to [facility] No
--- NOTE | 2018-05-25 12:34 | PN ---
Progress Note, Physician History of Present Illness: 52yo F with autoimmune disorder admitted to the hospital because of abd pain and discomfort which was associated with nausea initially the pain was diffuse then it got localized to the rlq patient was worked up and found to have acute appendicitis on imaging studies and patient was taken to the operating room and was operated (lap apendectomy ) on May 22 Today AM hypotensive - thought to dehydration. Today evening chest pain. EKG CE pending Transfer to [facility] telemetry initiated. - Current Medication List Current Medications: Active Medications Acetaminophen (Tylenol -) 650 mg PO Q4H PRN PRN Reason: PAIN OR FEVER Last Admin: 05/24/18 22:29 Dose: 325 mg Heparin Sodium (Porcine) (Heparin -) 5,000 unit SQ TID [facility] Last Admin: 05/25/18 06:27 Dose: Not Given Lorazepam (Ativan -) 1 mg PO HS PRN PRN Reason: ANXIETY Last Admin: 05/24/18 22:28 Dose: 0.5 mg Pantoprazole Sodium (Protonix -) 40 mg PO BID [facility] Last Admin: 05/25/18 09:35 Dose: 40 mg - Objective Vital Signs: Vital Signs Temperature 99.3 F 05/25/18 06:00 Pulse Rate 91 H 05/25/18 06:00 Respiratory Rate 16 05/25/18 06:00 Blood Pressure 118/68 05/25/18 06:00 O2 Sat by Pulse Oximetry (%) 98 05/24/18 18:00 Eyes: Yes: WNL, Conjunctiva Clear, EOM Intact HENT: Yes: WNL, Atraumatic, Normocephalic Neck: Yes: WNL, Supple, Trachea Midline Cardiovascular: Yes: WNL, Regular Rate and Rhythm Respiratory: Yes: WNL, Regular, CTA Bilaterally Gastrointestinal: Yes: WNL, Normal Bowel Sounds Genitourinary: Yes: WNL Musculoskeletal: Yes: WNL Extremities: Yes: WNL Edema: No Integumentary: Yes: WNL Neurological: Yes: WNL, Alert, Oriented ...Motor Strength: WNL Psychiatric: Yes: WNL Labs: CBC, BMP 05/24/18 00:00 05/25/18 05:30 INR, PTT INR 0.98 (0.82-1.09) 05/22/18 10:50 Problem List - Problems (1) Acute appendicitis Code(s): K35.80 - UNSPECIFIED ACUTE APPENDICITIS Qualifiers: Acute appendicitis type: unspecified acute appendicitis type Qualified Code (s): K35.80 - Unspecified acute appendicitis (2) Appendicitis Code(s): K37 - UNSPECIFIED APPENDICITIS Qualifiers: Appendicitis type: acute appendicitis Acute appendicitis type: unspecified acute appendicitis type Qualified Code(s): K35.80 - Unspecified acute appendicitis (3) Nausea alone Code(s): R11.0 - NAUSEA (4) Obesity Code(s): E66.9 - OBESITY, UNSPECIFIED Qualifiers: Serious obesity comorbidity presence: without serious comorbidity (5) RLQ abdominal pain Code(s): R10.31 - RIGHT LOWER QUADRANT PAIN (6) Vestibular neuritis Code(s): H81.20 - VESTIBULAR NEURONITIS, UNSPECIFIED EAR Qualifiers: Laterality: unspecified laterality Qualified Code(s): H81.20 - Vestibular neuronitis, unspecified ear Assessment/Plan atypical cp - sharp short lasting bradycardia s/p appendectomy POD #3 Plan conttelemetry r/o mi serial enzymes and ekgs echo nl ef mild to mod mr refusing MIBI st -understands risks of /NC
[2018-05-25 14:35] VITALS: BP 120/77; PULSE 94; TEMP 98.8
[2018-05-26 06:10] LABS: TRANSFERRIN 225 mg/dL (200-370)
--- NOTE | 2018-05-26 16:52 | PATH ---
Surgical Pathology Report Patient Name: CATIE BAR [facility]. Rec. #: [id number] /Age/Gender: 1965 (Age: 52) / F Account: [id number] Location: 4 W TELEMETRY U Taken: 05/22/2018 Received: 05/22/2018 Reported: 05/26/2018 Physicians: Diandra Chavez MD Specimen(s) Received APPENDIX Clinical History Acute appendicitis Final Diagnosis APPENDIX, LAPAROSCOPIC APPENDECTOMY: ACUTE APPENDICITIS AND FOCAL MILD PERIAPPENDICITIS. Electronically Signed Madina Frankel M.D. Gross Description Received in formalin, labeled "appendix," is a 7 x 0.7 x 0. 7 cm. in length vermiform appendix with a stapled margin of resection and moderate attached fat. The serosa is focally hemorrhagic with small white aggregates measuring 0.1 cm in greatest dimension. Sectioning reveals focally hemorrhagic lumen. The wall of the appendix averages 0.2 cm. in thickness. Healthcare Economics Consultant sections are submitted in one cassette. MLSZ/05/25/2018 jen/05/25/2018
== END 2018-05-25 13:22 | disposition home or self-care (01) ==
LOC: FER 23:50 → FM/S 05-22 03:54 → INTOOBSV 05-22 04:03 → OBSVTOIN 05-22 04:03 → FM/S 05-23 10:57 → J4W 05-23 21:08
PROVIDERS: ADMIT Internal Medicine; ATTEND Nurse Practitioner Acute Care
PROC: 3E03329 Introduction of Other Anti-infective into Peripheral Vein, Percutaneous Approach (ICD-10-PCS; 2018-05-22)
PROC: 3E033NZ Introduction of Analgesics, Hypnotics, Sedatives into Peripheral Vein, Percutaneous Approach (ICD-10-PCS; 2018-05-22)
PROC: 3E033GC Introduction of Other Therapeutic Substance into Peripheral Vein, Percutaneous Approach (ICD-10-PCS; 2018-05-22)
PROC: 3E0337Z Introduction of Electrolytic and Water Balance Substance into Peripheral Vein, Percutaneous Approach (ICD-10-PCS; 2018-05-22)
PROC: 3E0F7GC Introduction of Other Therapeutic Substance into Respiratory Tract, Via Natural or Artificial Opening (ICD-10-PCS; 2018-05-22)
PROC: 0DTJ4ZZ Resection of Appendix, Percutaneous Endoscopic Approach (ICD-10-PCS; principal; 2018-05-22 11:00)
DX: K35.80 Unspecified acute appendicitis (principal); I95.9 Hypotension, unspecified; F41.9 Anxiety disorder, unspecified; D64.9 Anemia, unspecified; R00.1 Bradycardia, unspecified; R07.9 Chest pain, unspecified; R06.02 Shortness of breath; H81.20 Vestibular neuronitis, unspecified ear; M35.9 Systemic involvement of connective tissue, unspecified; E66.9 Obesity, unspecified; Z68.33 Body mass index [BMI] 33.0-33.9, adult; Z87.891 Personal history of nicotine dependence; Z88.2 Allergy status to sulfonamides
CPT/HCPCS: 36415; 71045-TC-FY; 71275-TC; 74177-TC; 76700-TC; 80048; 80053; 81003; 81015; 82550; 82728; 83540; 83550; 83605; 83690; 83735; 84100; 84466; 84484; 85025; 85027; 85610; 86850; 86900; 86901; 87040; 87086; 88304-TC; 93005; 93010; 93306-TC; 94640; 94760; 99283-25; G0378; J1644; J7030; J7620

== ENCOUNTER 2019-05-25 21:43 | Emergency (ER) | payer OTHER ==
[2019-05-25 21:55] VITALS: BP 114/81; PULSE 70; TEMP 98.2; BMI 29.2
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
== END 2019-05-25 22:58 | disposition home or self-care (01) ==
LOC: FER 21:43
DX: F07.81 Postconcussional syndrome (principal); Z87.891 Personal history of nicotine dependence
CPT/HCPCS: 70450-TC; 99281-25

== ENCOUNTER 2019-08-23 12:23 | Emergency (ER) | payer OTHER ==
[2019-08-23 12:27] VITALS: BP 106/56; PULSE 69; TEMP 98.3; BMI 28.8
--- NOTE | 2019-08-23 12:42 | PDOC ---
History of Present Illness - General Chief Complaint: Pain, Acute Stated Complaint: right foot pain Time Seen by Provider: 08/23/19 12:29 History Source: Patient Exam Limitations: No Limitations - History of Present Illness Initial Comments: 53 YOF with right lateral foot "sharp" and "crunching" pain x 1 week. she feels there may be a foreign body in the right foot. pt endorses difficulty walking and moving her foot with the pressure, but is able to ambulate. she had acupuncture done 2 days prior to onset of sx prior h/o FB, required removal by automotive quality manager, symptoms feel similar denies trauma or falls. Review of Systems Constitutional: no fevers or chills. Abdomen: no abdominal pain Genitorurinary: no urinary retention or incontinence, no dysuria, urgency or frequency. no hematuria MUSCULOSKELETAL: No joint pain and swelling. No muscle pain/arthralgias. +foot pain. Back: no back pain SKIN: no redness or skin changes, no discharge, no rash. No wounds. Hematologic: no easy bruising/bleeding. NEUROLOGIC: No weakness, numbness or tingling. Allergic/Immunologic: no allergies All other systems reviewed and negative, or as documented in HPI. physical exam General: NAD, well appearing Abdomen: soft, no tenderness, nondistended Vascular: 2+ DP pulses symmetric and equal. Back: no midline tenderness, no stepoffs, FROM MSK: notable for soft compartments, normal inspection of right foot. Cap refill <2 sec. Proximal and distal strength 5/5, polyethylene combiner strength 5/5 - equal and symmetric. Plantar flexion and dorsiflexion 5/5. FROM. Sensation grossly intact to light touch. No calf tenderness. L5-S1 sensation intact to light touch. Neuro: alert, no focal neurologic deficits Skin: color normal color, warm and well perfused. Cap refill <2 sec. no skin discoloration. no palp swelling, no FB seen or palpated 08/23/19 13:48 Past History - Past Medical History Allergies/Adverse Reactions: Allergies Allergy/AdvReac Type Severity Reaction Status Date / Time Sulfa (Sulfonamide Allergy Verified 08/23/19 12:25 Antibiotics) Home Medications: Ambulatory Orders NK [No Known Home Medication] 08/23/19 COPD: No - Surgical History Appendectomy: Yes - Psycho Social/Smoking Cessation Hx Smoking History: Never smoked Have you smoked in the past 12 months: No If you are a former smoker, when did you quit?: 4 pk-yr hx in teens Hx Alcohol Use: No Drug/Substance Use Hx: No Substance Use Type: None Hx Substance Use Treatment: No *Physical Exam - Vital Signs Last Vital Signs Temp Pulse Resp BP Pulse Ox 98.3 F 69 16 106/56 L 100 08/23/19 12:24 08/23/19 12:24 08/23/19 12:24 08/23/19 12:24 08/23/19 12:24 Medical Decision Making - Medical Decision Making 08/23/19 13:51 Vital Signs Temp Pulse Resp BP Pulse Ox 98.3 F 69 16 106/56 L 100 08/23/19 12:24 08/23/19 12:24 08/23/19 12:24 08/23/19 12:24 08/23/19 12:24 VS reviewed, wnl analgesia given can bear weight. came in sandals. no other traumatic injuries noted on history. Xray rt foot, normal joint space alignment, no acute fx or dislocation. +mtp bunion. no FB seen Discussed results with patient. MARIAM wrap for comfort, hard sole shoe for support and relief. Rest ice and elevation. Pain control with OTC meds including motrin/tylenol as needed every 6 hours; no narcotics needed. Ortho followup provided. WBAT. podiatry followup. Please return to ED for increased pain, weakness, numbness/tingling, fever, or redness. 08/23/19 13:54 Discharge - Discharge Information Problems reviewed: Yes Clinical Impression/Diagnosis: Right foot pain Condition: Stable Disposition: HOME - Admission No - Follow up/Referral Referrals: Surendra Rios DPM [Staff Physician] - - Patient Discharge Instructions Patient Printed Discharge Instructions: DI for Foot Pain Additional Instructions: Your x-ray imaging was negative for any fracture there is a first toe joint bunion which can be followed up with your automotive quality manager. Rest ice and elevate, avoid any exertional or strenuous activity. Monitor for any worsening symptoms including paresthesias, numbness, tingling, weakness. Avoid any further manipulation/trauma to your foot that could have precipitated your symptoms. you can mariam wrap for comfort we have provided a shoe for foot support while walking. Podiatry follow-up is recommended. - Post Discharge Activity
[2019-08-23] MEDS ORDERED: ACETAMINOPHEN 325 MG TABLET (FP) PO ONE (12:48)
[2019-08-23] MEDS ORDERED: IBUPROFEN 600 MG TABLET (FP) PO ONE ×2 (12:48→12:50)
[2019-08-23] MEDS ORDERED: ACETAMINOPHEN 325 MG TABLET (FP) ONE (12:50)
== END 2019-08-23 13:54 | disposition home or self-care (01) ==
LOC: FER 12:23
DX: M79.671 Pain in right foot (principal); Z88.2 Allergy status to sulfonamides; Z87.891 Personal history of nicotine dependence
CPT/HCPCS: 73630-TC-RT-FY; 99281-25